=== PATIENT | male | born 1965 | race Caucasian/White ===

== ENCOUNTER → 2017-04-19 15:19 | Outpatient (CLI) | payer MEDICARE ==
[2013-03-11 13:32] VITALS: BMI 23.1
[~2017-04-19 15:19] MED LIST: CARAFATE1 G OR; CELEXA20 MG PO; FLAGYL500 MG PO; FLOMAX0.4 MG PO; NEURONTIN 100100 MG OR; PROTONIX40 MG PO; STELAZINE1 MG OR; VALIUM5 MG OR
== END | disposition home or self-care (01) ==
LOC: D.RAD 15:19
DX: K59.00 Constipation, unspecified (principal)

== ENCOUNTER 2017-05-30 12:59 | Emergency (ER) | payer MEDICARE ==
[2013-03-11 13:32] VITALS: BMI 23.1
[2017-05-30 13:49] LABS: BASOPHILS 0.3 % (0-2); EOSINOPHILS 1.8 % (0-7); HEMATOCRIT 39.9 % (42.0-54.0); HEMOGLOBIN 13.1 g/dL (13.5-17.5); IMMATURE GRANULOCYTES 0.6 % (0-5); LYMPHOCYTES 33.2 % (15-50); MCH 28.3 pg (26.0-34.0); MCHC 32.8 g/dL (31.0-37.0); MCV 86.2 fL (80.0-100.0); MEAN PLATELET VOLUME 8.4 fL (7.4-10.4); MONOCYTES 7.9 % (2-11); NEUTROPHILS 56.2 % (40-80); PLATELET COUNT 401 10x3/uL (130-400); RBC 4.63 10x6/uL (4.20-6.10); RDW 14.8 % (11.5-14.5); WBC 10.8 10x3/uL (4.8-10.8)
[2017-05-30 14:04] LABS: ALBUMIN 2.9 g/dL (3.4-5.0); ALKALINE PHOSPHATASE 79 U/L (46-116); ALT (SGPT) 14 U/L (10-68); BILIRUBIN - TOTAL 0.14 mg/dL (0.2-1.3); CALC OSMOLALITY 273 mosm/kg (275-300); CALCIUM 9.3 mg/dL (8.5-10.1); CARBON DIOXIDE 26.2 mmol/L (21.0-32.0); CHLORIDE - SERUM 102 mmol/L (98-107); CREATININE - SERUM 1.2 mg/dL (0.6-1.3); GLUCOSE 76 mg/dL (74-106); PROTEIN - SERUM 8.3 g/dL (6.4-8.2); SODIUM 137 mmol/L (136-145); UREA NITROGEN 15 mg/dL (7-18); eGFR NON AFRICAN AMERICAN 67 mL/min (90-120)
[2017-05-30 14:16] LABS: PRO BNP 66 pg/mL (0-125); TROPONIN-I < 0.017 ng/mL (0.000-0.060)
== END 2017-05-30 14:53 | disposition home or self-care (01) ==
LOC: D.ER 12:59
PROVIDERS: Emergency Medicine
DX: R06.00 Dyspnea, unspecified (principal); J44.1 Chronic obstructive pulmonary disease with (acute) exacerbation; F17.200 Nicotine dependence, unspecified, uncomplicated

== ENCOUNTER 2017-06-06 10:11 | Emergency (ER) | payer MEDICARE ==
[2013-03-11 13:32] VITALS: BMI 23.1
== END 2017-06-06 14:11 | disposition home or self-care (01) ==
LOC: D.ER 10:11
DX: K29.00 Acute gastritis without bleeding (principal); R11.10 Vomiting, unspecified; J44.9 Chronic obstructive pulmonary disease, unspecified; K21.9 Gastro-esophageal reflux disease without esophagitis; F17.200 Nicotine dependence, unspecified, uncomplicated

== ENCOUNTER 2017-06-07 12:01 | Inpatient (IN) | payer MEDICARE ==
[2017-06-07 12:41] LABS: BASOPHILS 0.2 % (0-2); EOSINOPHILS 0 % (0-7); HEMATOCRIT 39.8 % (42.0-54.0); HEMOGLOBIN 13.5 g/dL (13.5-17.5); IMMATURE GRANULOCYTES 0.4 % (0-5); LYMPHOCYTES 13.9 % (15-50); MCH 28.4 pg (26.0-34.0); MCHC 33.9 g/dL (31.0-37.0); MCV 83.6 fL (80.0-100.0); MEAN PLATELET VOLUME 8.4 fL (7.4-10.4); MONOCYTES 4.2 % (2-11); NEUTROPHILS 81.3 % (40-80); PLATELET COUNT 446 10x3/uL (130-400); RBC 4.76 10x6/uL (4.20-6.10); RDW 14.5 % (11.5-14.5); WBC 8.4 10x3/uL (4.8-10.8)
[2017-06-07 13:10] LABS: ALBUMIN 3.2 g/dL (3.4-5.0); ANION GAP 19.9 mmol/L (8-16); BILIRUBIN - TOTAL 0.39 mg/dL (0.2-1.3); CALCIUM 9.9 mg/dL (8.5-10.1); CARBON DIOXIDE 20.5 mmol/L (21.0-32.0); CREATININE - SERUM 1.1 mg/dL (0.6-1.3); POTASSIUM - SERUM 3.4 mmol/L (3.5-5.1); PROTEIN - SERUM 8.6 g/dL (6.4-8.2)
[2017-06-07 15:58] LABS: APPEARANCE HAZY (CLEAR); BACTERIA MODERATE /hpf (NONE SEEN); BILIRUBIN NEGATIVE (NEGATIVE); COLOR YELLOW (YELLOW); EPITHELIAL CELLS 0-5 /hpf (0-5); GLUCOSE NEGATIVE (NEGATIVE); KETONE SMALL mg/dL (NEGATIVE); MUCUS <1+ /lpf (NONE SEEN); NITRITE POSITIVE (NEGATIVE); PROTEIN NEGATIVE (NEGATIVE); RED CELLS - URINE 0-5 /hpf (0-5); SPECIFIC GRAVITY 1.005 (1.005-1.020); UROBILINOGEN NORMAL (NORMAL); WHITE CELLS - URINE 25-50 /hpf (0-5)
[2017-06-07 15:59] LABS: YEAST <1+ /hpf (NONE SEEN)
--- NOTE | 2017-06-07 18:02 | NUR ---
PT ADMITTED TO FLOOR WITH HOSPITAL STAFF. VSS B/P 112/69, PULSE 65 BPM, TEMP 99.2, RESPIRATIONS 16, PULSE OX 95% ROOM AIR. L UPPER ARM IV WITH NS AT 125ML/HR.
--- NOTE | 2017-06-07 19:00 | NUR ---
REPORT RECEIVED AND CARE OF PT ASSUMED. PT LYING IN SUPINE POSITION WATCHING TV. PT ARRIVED ON FLOOR AROUND 1800 FROM ER. WILL MONITOR RADHA FOR NEEDS.
--- NOTE | 2017-06-07 21:10 | NUR ---
HS MEDICATIONS GIVEN. WILL CONTINUE TO MONITOR FOR NEEDS.
--- NOTE | 2017-06-07 23:18 | NUR ---
CONNECTED UROSTOMY BAG TO MILLIGAN TUBING / BAG PER PT REQUEST SO HE CAN SLEEP WITHOUT HAVING TO EMPTY BAG DURING THE NIGHT.
[2017-06-07 23:24] VITALS: BP 160/91; BMI 17.0
[2017-06-08] VITALS: BP 90/56
[2017-06-08 04:00] VITALS: BP 105/69
[2017-06-08 06:14] LABS: BASOPHILS 0.4 % (0-2); EOSINOPHILS 0.7 % (0-7); HEMATOCRIT 36.7 % (42.0-54.0); HEMOGLOBIN 11.9 g/dL (13.5-17.5); IMMATURE GRANULOCYTES 0.3 % (0-5); LYMPHOCYTES 33.9 % (15-50); MCH 28.1 pg (26.0-34.0); MCHC 32.4 g/dL (31.0-37.0); MEAN PLATELET VOLUME 8.5 fL (7.4-10.4); MONOCYTES 7.3 % (2-11); NEUTROPHILS 57.4 % (40-80); PLATELET COUNT 395 10x3/uL (130-400); RBC 4.24 10x6/uL (4.20-6.10); RDW 14.9 % (11.5-14.5); WBC 9.1 10x3/uL (4.8-10.8)
[2017-06-08 06:19] LABS: MCV 86.6 fL (80.0-100.0)
[2017-06-08 06:45] LABS: ALBUMIN 2.5 g/dL (3.4-5.0); ALKALINE PHOSPHATASE 71 U/L (46-116); ALT (SGPT) 18 U/L (10-68); AMYLASE - SERUM 62 U/L (25-115); BILIRUBIN - DIRECT 0.07 mg/dL (0.00-0.30); BILIRUBIN - INDIRECT 0.13 mg/dL (0.00-1.00); CALCIUM 8.8 mg/dL (8.5-10.1); CHLORIDE - SERUM 106 mmol/L (98-107); LIPASE 120 U/L (73-393); POTASSIUM - SERUM 3.2 mmol/L (3.5-5.1); PROTEIN - SERUM 6.6 g/dL (6.4-8.2); SODIUM 141 mmol/L (136-145); eGFR NON AFRICAN AMERICAN 83 mL/min (90-120)
[2017-06-08 06:46] LABS: CALC OSMOLALITY 280 mosm/kg (275-300); CARBON DIOXIDE 27.2 mmol/L (21.0-32.0); GLUCOSE 97 mg/dL (74-106); UREA NITROGEN 12 mg/dL (7-18)
--- NOTE | 2017-06-08 07:42 | NUR ---
PT IS SITTING UP IN BED NO SIGNS OF DISTRESS, ASKED FOR BOTLED WATER,PT STATE THAT TAP WATER MAKES HIS STOMACH CRAMP HORRIBLY. ORDERED BOTTLED WATER TO BE BROUGHT WITH EACH TRAY FOR PT. BED IN LOW POSITION, CALL LIGHT IN REACH NO OTHER NEEDS AT THIS TIME
[2017-06-08 09:22] LABS: HELICOBACTER PYLORI IGG NEGATIVE (NEGATIVE)
[2017-06-08 09:38] VITALS: BP 97/63
--- NOTE | 2017-06-08 11:04 | NUR ---
PT C/O PAIN IN ABDOMEN, MORE LIKE CRAMPS, STOMACH IN KNOTS, GAVE PT ORDERED PRN MEDS. PT VERY NAUSEOUS, CONTINUE TO MONITOR
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
[2017-06-08 11:52] VITALS: BP 105/69
[2017-06-08 12:40] VITALS: BMI 17.0
[2017-06-08 16:41] VITALS: BP 91/58
--- NOTE | 2017-06-08 19:45 | NUR ---
PATIENT RESTING IN BED WITH 4/10 PAIN AND REQUESTED A DRINK. PATIENT DENIES OTHER NEEDS AT THIS TIME. BED IN LOWEST POSITION AND CALL LIGHT WITHIN REACH. ENCOURAGED THE PT TO CALL IF HE HAS NEEDS.
[2017-06-08 20:00] VITALS: BP 80/49
[2017-06-09] VITALS: BP 102/50; BP 90/49
[2017-06-09 07:44] LABS: CALC OSMOLALITY 277 mosm/kg (275-300); CALCIUM 8.5 mg/dL (8.5-10.1); CARBON DIOXIDE 25.8 mmol/L (21.0-32.0); CHLORIDE - SERUM 106 mmol/L (98-107); CREATININE - SERUM 0.8 mg/dL (0.6-1.3); GLUCOSE 87 mg/dL (74-106); POTASSIUM - SERUM 3.8 mmol/L (3.5-5.1); SODIUM 141 mmol/L (136-145); eGFR NON AFRICAN AMERICAN > 90 mL/min (90-120)
--- NOTE | 2017-06-09 07:45 | NUR ---
AM ROUNDS - PT IS IN ABD AND AWAKE AT THIS TIME. PT IS UP AD VISH. IV TO RIGHT UPPER ARM, NS AT 30 CC/HR. PT C/O ABD PAIN, 01/12. PT HAD DILAUDID AT 0545. RIGHT UROSTOMY, SELF CARE. BED AT LOWEST POSITION. CALL FOFANA IN USE/REACH. SIDE RAILS UP X2. NO FUTHER NEEDS AT THIS TIME. WILL CONTINUE TO MONITOR.
[2017-06-09 07:49] LABS: UREA NITROGEN 7 mg/dL (7-18)
[2017-06-09 09:02] VITALS: BP 96/54
--- NOTE | 2017-06-09 11:40 | NUR ---
PT IN BED AND APPREARS TO BE SLEEPING WITH EQUAL AND NON LABORED BREATHING. WILL CONTINUE TO MONITOR
[2017-06-09 12:19] VITALS: BP 100/61
[2017-06-09 16:42] VITALS: BP 112/61
--- NOTE | 2017-06-09 19:16 | NUR ---
PT RESTING IN BED WITH NO VISIBLE SIGNS OF DISTRESS. PATIENT REQUESTED PAIN MEDS WHEN DUE. DENIES OTHER NEEDS AT THIS TIME. BED IN LOWEST POSITION AND CALL LIGHT WITHIN REACH. ENCOURAGED THE PT TO CALL IF HE HAS NEEDS.
[2017-06-09 20:00] VITALS: BP 114/65
[2017-06-10] VITALS: BP 110/62
[2017-06-10 04:00] VITALS: BP 115/69
--- NOTE | 2017-06-10 07:54 | NUR ---
PT RESTING IN BED. ASSESSMENT COMPLETE. PT DENIES NEEDS AT THIS TIME. WCTM.
[2017-06-10 08:28] VITALS: BP 106/59
--- NOTE | 2017-06-10 09:41 | NUR ---
PT REQ AND REC'D PRN PAIN MEDICATION. WCTM.
[2017-06-10 13:18] VITALS: BP 107/72
--- NOTE | 2017-06-10 14:27 | NUR ---
"Patient Name: ISIS Mena KENYATTA Admission Status: ER Accout number: [id number] Admission Date: 06-07-2017 : 1965 Admission Diagnosis: Attending: CINTIA GASTELUM Current LOS: 3 Anticipated DC Date: 06-12-2017 Planned Disposition: Home Primary Insurance: MEDICARE A & B Discharge Planning Comments: CM MET WITH PATIENT REGARDING DISCHARGE NEEDS AND PLANS. PATIENT STATED HE LIVES ALONE AND HAS ABOUT 14 STEPS W/RAILS TO ENTER HOME. PATIENT STATED HE IS INDEPENDENT WITH HIS CARE AND HAS NO DME AT HOME. PATIENTS PCP IS AT [facility] AND HE USES [facility] ON [address] PATIENT STATED HE IS CURRENT WITH [facility]. CM WILL CONTINUE TO FOLLOW PATIENT WITH D/C NEEDS AND PLANS. PCP [facility] [address]- [phone] ERIN HUTSON (CONTACT/FRIEND) [phone] 4Th Grade Teacher: Maryam Pérez Is the patient Alert and Oriented? Yes 0 * How many steps to enter\\exit or inside your home? 14 W/RAILS 0 * PCP [facility] ([place]) 0 * Pharmacy [facility] ([address]) 0 * Preadmission Environment Home with Family 0 * ADLs Independent 0 * Equipment None 0 * List name and contact numbers for known caregivers / representatives who currently or will assist patient after discharge: ERIN HUTSON [phone] OR [phone] * Community resources currently utilized Home Health 0 * Please name any agencies selected above. [facility] 0 * Additional services required to return to the preadmission environment? Yes 0 * Can the patient safely return to the preadmission environment? Yes 0 * Has this patient been hospitalized within the prior 30 days at any hospital? No 0 Grand Total: 0"
--- NOTE | 2017-06-10 14:57 | NUR ---
NUTRITION F/U CHART REVIEWED. DIET ADVANCED TO REGULAR. 100% INTAKE RECENT MEALS. WILL CONTINUE TO PROVIDE DIET, MONITOR PO INTAKE. RD FOLLOWING
--- NOTE | 2017-06-10 16:16 | NUR ---
PT REQ AND REC'D PRN PAIN MEDICATION FOR PAIN LEVEL 9/10 ABD CRAMPING.
[2017-06-10 20:00] VITALS: BP 127/78
--- NOTE | 2017-06-10 21:41 | NUR ---
PAGED DR. LOMBARDI IN REGARDS TO PT'S DILAUDID
--- NOTE | 2017-06-10 22:25 | NUR ---
PT RESTING IN BED AT THIS TIME. ADMINISTERED MEDS PER ORDERS AND COMPLETED ASSESSMENT. PT DENIES OTHER NEEDS AT THIS TIME. BED IN LOWEST POSITION AND CALL LIGHT WITHIN REACH. ENCOURAGED THE PT TO CALL IF HE HAS NEEDS.
[2017-06-11 04:00] VITALS: BP 130/80
[2017-06-11 05:29] LABS: BASOPHILS 0.3 % (0-2); HEMATOCRIT 34.8 % (42.0-54.0); HEMOGLOBIN 11.7 g/dL (13.5-17.5); IMMATURE GRANULOCYTES 0.3 % (0-5); LYMPHOCYTES 31.2 % (15-50); MCH 28.2 pg (26.0-34.0); MCHC 33.6 g/dL (31.0-37.0); MCV 83.9 fL (80.0-100.0); MEAN PLATELET VOLUME 8.7 fL (7.4-10.4); MONOCYTES 7.3 % (2-11); NEUTROPHILS 57.9 % (40-80); PLATELET COUNT 331 10x3/uL (130-400); RBC 4.15 10x6/uL (4.20-6.10); RDW 14.2 % (11.5-14.5); WBC 7.3 10x3/uL (4.8-10.8)
[2017-06-11 05:36] LABS: CALCIUM 8.6 mg/dL (8.5-10.1); CARBON DIOXIDE 30.4 mmol/L (21.0-32.0); CHLORIDE - SERUM 105 mmol/L (98-107); CREATININE - SERUM 0.9 mg/dL (0.6-1.3); GLUCOSE 89 mg/dL (74-106); SODIUM 142 mmol/L (136-145); eGFR NON AFRICAN AMERICAN > 90 mL/min (90-120)
[2017-06-11 05:49] LABS: CALC OSMOLALITY 280 mosm/kg (275-300); POTASSIUM - SERUM 3.1 mmol/L (3.5-5.1); UREA NITROGEN 11 mg/dL (7-18)
--- NOTE | 2017-06-11 07:15 | NUR ---
PT IS RECEIVED THIS AM. HE IS SITTING UP ON SIDE OF BED. HE STATES THAT HE IS GOING HOME TODAY. HE STATES THAT HE IS FEELING BETTER THIS AM. GEN- AWAKE AND ALERT. LUNGS WITH WHEEZING. HEART- RRR. ABD- SOFT, NT BS+. UROSTOMY R SIDE OF LOWER ABD. EXT- NO EDEMA. IV NOTED R UPPER ARM WITH NS AT 30 CC. PATENT IV. BED IS LOW. SIDE RAILS UP X 2 AND CALL LIGHT IN REACH.
[2017-06-11] MEDS ORDERED: FLOMAX0.4 MG PO (07:43)
[2017-06-11] MEDS ORDERED: MACROBID100 MG PO (07:43)
[2017-06-11] MEDS ORDERED: GABAPENTIN100 MG PO (07:43)
[2017-06-11] MEDS ORDERED: K-TAB10 MEQ PO (07:44)
--- NOTE | 2017-06-11 09:00 | NUR ---
PT DISCHARGED HOME. DISCHARE INSTRUCTIONS GIVEN AND HANDOUTS GIVEN. ANSWERE PT QUESTIONS. HE IS WAITING ON HIS BLOOD DONOR RECRUITER TO PICK HIM UP.
--- NOTE | 2017-06-11 09:10 | NUR ---
CM REASSESSMENT NOTE: PATIENT IS DISCHARGING HOME TODAY/FRIEND IS DRIVING HIM. PATIENT IS CURRENT WITH [facility]. IMM SERVED
[2017-06-11 09:38] VITALS: BP 128/84
--- NOTE | 2017-06-11 10:00 | NUR ---
VENDOR QUALITY SUPERVISOR IS HERE TO PICK PT UP. IV D'CD R UPPER ARM. TIP INTACT. PT REFUSED WHEELCHAIR. HE WALKED WITH HIS VENDOR QUALITY SUPERVISOR.
== END 2017-06-11 10:00 | disposition home health service (06) | DRG 690 ==
LOC: D.ER 12:01 → D.MS 16:56
PROVIDERS: Emergency Medicine; ADMIT Family Medicine
DX: N10 Acute pyelonephritis (principal); E87.6 Hypokalemia; E86.0 Dehydration; K21.9 Gastro-esophageal reflux disease without esophagitis; F25.9 Schizoaffective disorder, unspecified

== ENCOUNTER → 2017-06-12 09:57 | Outpatient (CLI) | payer MEDICARE ==
[2017-06-08 12:40] VITALS: BMI 17.0
[~2017-06-12 09:57] MED LIST changes: +AMOXICILLIN500 M1 PO; +CYPROHEPTADINE H4 MG PO; +DEPAKOTE500 MG PO; +DIFLUCAN100 MG PO; +FLORAJEN3 CAPS460 MG PO; +GABAPENTIN100 MG PO; +K-TAB10 MEQ PO; +KLOR-CON 1010 MEQ PO; +MACROBID100 MG PO; +MIRALAX17 GM PO; +PROZAC40 MG PO; +STELAZINE1 MG PO; +TEGRETOL200 MG PO; +VALIUM10 MG PO; +VALIUM5 MG PO
--- NOTE | 2017-06-16 07:59 | EEG ---
PATIENT:ISIS YOU DATE OF SERVICE: 06/12/17 MEDICAL RECORD: [id number] DATE OF : 61 LOCATION: [facility] ADMISSION DATE: 06/12/17 REFERRING PHYSICIAN: INTERPRETING PHYSICIAN: BEKAH VANCE MD DATE OF SERVICE: 06/12/2017 REFERRING PHYSICIAN: Dr. Infante as an outpatient. ELECTROENCEPHALOGRAM NUMBER: [id number]. DATE OF EXAMINATION: 06/12/2017 at 10:30 a.m. DATE OF : 1965. TECHNICAL DATA: This electroencephalographic recording consists of approximately 20 minutes of data collection utilizing the international 10:20 system of electrode placement and both referential and non-referential montages. Sixteen channels of electrocerebral recording are accompanied by a 17th channel dedicated to the electrocardiographic rhythm and 2 channels of electromyographic recording. Recording is performed in the awake and sleep states utilizing activation by photic stimulation. ELECTROENCEPHALOGRAPHIC DATA: The awake state comprises approximately 30% of the recorded electrocerebral activity. Electromyographic artifact is prominent and rapid eye movements are seen. The posterior dominant background consists of a symmetric semi-arrhythmic waxing and waning 7-8 Hz alpha activity, which is suppressed by eye opening. The posterior dominant background tends more towards 7 Hz through most of the recording, but does reach 8 Hz at intervals. The drowsy state comprises approximately 40% of the recorded electrocerebral activity. Electromyographic artifact is diminished and rapid eye movements are not seen. The posterior dominant background is relatively suppressed when it is seen and tends more towards 7 Hz. The transition to stage II sleep, which comprises the remaining portion of the recorded electrocerebral activity is heralded by the appearance of typical 15 Hz sleep spindles. No abnormal or focal slowing is identified. No epileptiform discharges are seen. Photic stimulation induces no abnormal change in the recorded electrocerebral activity. INTERPRETATION: Normal (awake and asleep). This is a normal electroencephalographic recording. TRANSINT:[id number] Voice Confirmation ID: [id number] DOCUMENT ID: [id number] ELECTROENCEPHALOGRAM REPORT [id number] ISIS YOU BEKAH VANCE MD at 0759 CC: [id number] DICTATION DATE: 06/13/17823 [place] OPERATOR: 06/13/17 1223 DEP CLI 06/12/17 [address] [place] [address]
== END | disposition home or self-care (01) ==
LOC: D.CN 06-06 10:00
DX: G40.309 Generalized idiopathic epilepsy and epileptic syndromes, not intractable, without status epilepticus (principal)

== ENCOUNTER 2017-06-23 14:23 | Emergency (ER) | payer MEDICARE ==
[~2017-06-23 14:23] MED LIST changes: -AMOXICILLIN500 M1 PO; -CYPROHEPTADINE H4 MG PO; -DEPAKOTE500 MG PO; -DIFLUCAN100 MG PO; -FLORAJEN3 CAPS460 MG PO; -KLOR-CON 1010 MEQ PO; -MIRALAX17 GM PO; -PROZAC40 MG PO; -STELAZINE1 MG PO; -TEGRETOL200 MG PO; -VALIUM10 MG PO; -VALIUM5 MG PO
[2017-06-23 14:44] LABS: APPEARANCE CLOUDY (CLEAR); BILIRUBIN NEGATIVE (NEGATIVE); COLOR YELLOW (YELLOW); GLUCOSE NEGATIVE (NEGATIVE); KETONE NEGATIVE (NEGATIVE); NITRITE NEGATIVE (NEGATIVE); PROTEIN NEGATIVE (NEGATIVE); UROBILINOGEN NORMAL (NORMAL)
[2017-06-23 14:50] LABS: RED CELLS - URINE 0-5 /hpf (0-5)
[2017-06-23 14:51] LABS: AMORPHOUS SEDIMENT <1+ /lpf (NONE SEEN); BACTERIA MODERATE /hpf (NONE SEEN); EPITHELIAL CELLS OCC /hpf (0-5); HYALINE CAST 0-5 /lpf (NONE SEEN); MUCUS >1+ /lpf (NONE SEEN); WAXY CAST RARE /lpf (NONE SEEN); YEAST >1+ WITH HYPHAE /hpf (NONE SEEN)
[2017-06-23 15:24] LABS: BASOPHILS 0.3 % (0-2); EOSINOPHILS 0.1 % (0-7); HEMATOCRIT 40.7 % (42.0-54.0); HEMOGLOBIN 13.1 g/dL (13.5-17.5); IMMATURE GRANULOCYTES 0.3 % (0-5); LYMPHOCYTES 5.9 % (15-50); MCH 27.6 pg (26.0-34.0); MCHC 32.2 g/dL (31.0-37.0); MCV 85.9 fL (80.0-100.0); MEAN PLATELET VOLUME 8.6 fL (7.4-10.4); MONOCYTES 6.7 % (2-11); NEUTROPHILS 86.7 % (40-80); PLATELET COUNT 365 10x3/uL (130-400); RBC 4.74 10x6/uL (4.20-6.10); RDW 14.8 % (11.5-14.5); WBC 15.5 10x3/uL (4.8-10.8)
[2017-06-23 15:37] LABS: ALBUMIN 3.1 g/dL (3.4-5.0); ANION GAP 13.7 mmol/L (8-16); BILIRUBIN - TOTAL 0.36 mg/dL (0.2-1.3); CALCIUM 9.4 mg/dL (8.5-10.1); CARBON DIOXIDE 26.5 mmol/L (21.0-32.0); CREATININE - SERUM 1.6 mg/dL (0.6-1.3); POTASSIUM - SERUM 4.2 mmol/L (3.5-5.1); PROTEIN - SERUM 8.2 g/dL (6.4-8.2)
== END 2017-06-23 18:05 | disposition home or self-care (01) ==
LOC: D.ER 14:23
PROVIDERS: Family Medicine
DX: N39.0 Urinary tract infection, site not specified (principal); N10 Acute pyelonephritis; N28.9 Disorder of kidney and ureter, unspecified; K21.9 Gastro-esophageal reflux disease without esophagitis

== ENCOUNTER 2017-07-11 12:15 | Inpatient (IN) | payer MEDICARE ==
[~2017-07-11] VITALS: Ht 190.5 cm; Wt 71.5 kg
[2017-07-11] VITALS (10 sets, daily range): BP systolic 80–105; BP diastolic 47–70; BMI 21.2
[2017-07-11 13:07] LABS: APPEARANCE HAZY (CLEAR); BACTERIA MODERATE /hpf (NONE SEEN); BILIRUBIN NEGATIVE (NEGATIVE); COLOR YELLOW (YELLOW); EPITHELIAL CELLS OCC /hpf (0-5); GLUCOSE NEGATIVE (NEGATIVE); KETONE NEGATIVE (NEGATIVE); NITRITE NEGATIVE (NEGATIVE); PROTEIN TRACE mg/dL (NEGATIVE); RED CELLS - URINE 0-5 /hpf (0-5); UROBILINOGEN NORMAL (NORMAL)
[2017-07-11 13:11] LABS: UDS - AMPHET POSITIVE QUAL (NEGATIVE); UDS - BARB NEGATIVE QUAL (NEGATIVE); UDS - BENZO POSITIVE QUAL (NEGATIVE); UDS - COCAINE NEGATIVE QUAL (NEGATIVE); UDS - OPIATE NEGATIVE QUAL (NEGATIVE); UDS - PCP NEGATIVE QUAL (NEGATIVE); UDS - THC POSITIVE QUAL (NEGATIVE)
[2017-07-11 13:13] LABS: BASOPHILS 0.1 % (0-2); EOSINOPHILS 0.1 % (0-7); HEMATOCRIT 39.9 % (42.0-54.0); HEMOGLOBIN 13.4 g/dL (13.5-17.5); IMMATURE GRANULOCYTES 0.5 % (0-5); LYMPHOCYTES 11.3 % (15-50); MCH 27.5 pg (26.0-34.0); MCHC 33.6 g/dL (31.0-37.0); MCV 81.9 fL (80.0-100.0); MEAN PLATELET VOLUME 8.2 fL (7.4-10.4); MONOCYTES 8.8 % (2-11); NEUTROPHILS 79.2 % (40-80); PLATELET COUNT 316 10x3/uL (130-400); RBC 4.87 10x6/uL (4.20-6.10); RDW 14.6 % (11.5-14.5); WBC 14.8 10x3/uL (4.8-10.8)
[2017-07-11 13:26] LABS: ALBUMIN 2.9 g/dL (3.4-5.0); ALKALINE PHOSPHATASE 106 U/L (46-116); ALT (SGPT) 10 U/L (10-68); BILIRUBIN - TOTAL 0.48 mg/dL (0.2-1.3); CALC OSMOLALITY 267 mosm/kg (275-300); CALCIUM 8.9 mg/dL (8.5-10.1); CARBON DIOXIDE 24.8 mmol/L (21.0-32.0); CHLORIDE - SERUM 93 mmol/L (98-107); CREATININE - SERUM 1.8 mg/dL (0.6-1.3); GLUCOSE 137 mg/dL (74-106); POTASSIUM - SERUM 3.7 mmol/L (3.5-5.1); PROTEIN - SERUM 8.4 g/dL (6.4-8.2); SODIUM 132 mmol/L (136-145); UREA NITROGEN 15 mg/dL (7-18); eGFR NON AFRICAN AMERICAN 42 mL/min (90-120)
[2017-07-11 13:29] LABS: MAGNESIUM - SERUM 1.2 mg/dL (1.8-2.4)
[2017-07-11 13:34] LABS: TROPONIN-I < 0.017 ng/mL (0.000-0.060)
[2017-07-11] MEDS ORDERED: KLOR-CON 1010 MEQ PO (18:41)
[2017-07-11] MEDS ORDERED: VALIUM5 MG PO (18:43)
[2017-07-11] MEDS ORDERED: PROTONIX40 MG PO (18:43)
[2017-07-11] MEDS ORDERED: VALIUM10 MG PO (18:44)
[2017-07-11] MEDS ORDERED: STELAZINE1 MG PO (18:44)
[2017-07-11] MEDS ORDERED: CYPROHEPTADINE H4 MG PO (18:45)
[2017-07-11] MEDS ORDERED: PROZAC40 MG PO (18:46)
[2017-07-11] MEDS ORDERED: TEGRETOL200 MG PO (18:46)
[2017-07-11] MEDS ORDERED: DEPAKOTE500 MG PO (18:47)
--- NOTE | 2017-07-11 18:55 | NUR ---
PT ARRIVED TO UNIT ALERT AND ORIENTED. QUICK START COMPLETED AND MED REC DONE. PT STATES HE HASNT TAKEN HIS MEDS THE LAST COUPLE DAYS BECAUSE HE HASNT FELT GOOD. PT ALSO STATES HE HAS BEEN BLACKING OUT LATELY BUT UNSURE WHY. BP VERY HYPOTENSIVE AT 80/50 IN R.ARM. CHECKED IN LEFT AND ITS WORSE AT 74/50 MANUALLY CHECKED AND HIGHEST WAS 72/40. PAGED DOCTOR IMMEDIATELY. PT ASYMPTOMATIC AND HAS FLUID @150ML/HR INFUSING. WILL CTM CLOSELY.
--- NOTE | 2017-07-11 19:09 | NUR ---
PRIMARY WANTS CARDIAC CONSULTED FOR HYPOTENSION AND ECHO ORDERED. PAGED REJI AND HE WANTS PT TRANSFERRED TO ICU STAT WITH A DOPAMINE DRIP STARTING @5 AND TO TITRATE SBP>85. CALLED CASING PULLER AND WILL GIVE ICU REPORT WHEN WE HAVE A BED.
--- NOTE | 2017-07-11 19:25 | NUR ---
PLACED PT IN [place] AND RECHECKED BP. BP NOW 70/41 VIA L.ARM WILL CALL REPORT TO ICU NURSE AND PT WILL TRANSFER TO 2307.
--- NOTE | 2017-07-11 19:54 | NUR ---
REPORT GIVEN TO DELILAH IN ICU. PROCESS AND SITUATION EXPLAINED TO PT. PT VERBALIZED UNDERSTANDING, LAST BP NOW 79/48. WILL NOW TRANSFER PT.
--- NOTE | 2017-07-11 20:13 | NUR ---
REC'D TO ROOM 2307, PT TRANSFERRED SELF. ALERT AND ORIENTED. B/P 87/57 (MAP 64). ORDERS FOR DOPAMINE GTT IF SBP < 85. ICU MONITORS ESTAB,, ALARMS ON. CM - SB. RLQ UROSTOMY NOTED WITH YELLOW URINE, SEDIMENT NOTED. PIV R AC WITH NS/MAG SULFATE AT 150ML/HR, NO REDNESS OR SWELLING AT SITE. SEE DEATH CLAIM EXAMINER BY PREV NURSE. C/L IN REACH.
--- NOTE | 2017-07-11 20:54 | NUR ---
Luana REDDY NOTIFIED OF PT C/O PAIN IN FLANK AREA. NEW ORDER REC'D.
--- NOTE | 2017-07-11 21:32 | NUR ---
ADMIN PRN TYLENOL. DENIES OTHER NEEDS.
--- NOTE | 2017-07-11 22:57 | NUR ---
REASSESSMENT PER FLOWSHEET, NO ACUTE CHANGES. TEMP 99.6. PT A LITTLE ANXIOUS. "JUST DONT KNOW WHAT'S WRONG." PT CALMED FOR NOW WHEN TALKED TO . WILL CONT CLOSE MONITORING.
--- NOTE | 2017-07-11 23:45 | NUR ---
INITIATE DOPAMINE GTT PER MD ORDERS - WILL TITRATE FOR EFFECT. PT UP IN BED, GIVEN JELLO AND APPLESAUCE PER REQUEST.
[2017-07-12] VITALS (51 sets, daily range): BP systolic 76–111; BP diastolic 46–75; Ht 190.5 cm; Wt 71.5 kg
--- NOTE | 2017-07-12 02:00 | NUR ---
PT UP TO BSC, SMALL BM. MAHIN-CARE PER PT. BACK TO BED.
--- NOTE | 2017-07-12 03:11 | NUR ---
REASSESSMENT PER FLOWSHEET, NO ACUTE CHANGES. TEMP 100.8 - PRN TYLENOL GIVEN. PT RESTING ON L SIDE. SBP 80S - TITRATING DOPAMINE PER MD ORDERS. PT DENIES OTHER NEEDS. C/L IN REACH. ALARMS ON.
[2017-07-12 04:03] LABS: BASOPHILS 0.1 % (0-2); EOSINOPHILS 0 % (0-7); HEMATOCRIT 32.7 % (42.0-54.0); HEMOGLOBIN 10.8 g/dL (13.5-17.5); IMMATURE GRANULOCYTES 0.4 % (0-5); LYMPHOCYTES 9.6 % (15-50); MCH 26.8 pg (26.0-34.0); MCV 81.1 fL (80.0-100.0); MEAN PLATELET VOLUME 8.4 fL (7.4-10.4); MONOCYTES 8.1 % (2-11); NEUTROPHILS 81.8 % (40-80); PLATELET COUNT 261 10x3/uL (130-400); RBC 4.03 10x6/uL (4.20-6.10); RDW 14.6 % (11.5-14.5)
[2017-07-12 04:15] LABS: ANION GAP 12.2 mmol/L (8-16); CALCIUM 7.8 mg/dL (8.5-10.1); CARBON DIOXIDE 26.1 mmol/L (21.0-32.0); CREATININE - SERUM 1.4 mg/dL (0.6-1.3); MAGNESIUM - SERUM 2.1 mg/dL (1.8-2.4); PHOSPHOROUS 2.5 mg/dL (2.5-4.9); POTASSIUM - SERUM 3.3 mmol/L (3.5-5.1)
--- NOTE | 2017-07-12 10:50 | NUR ---
DOPAMINE TITRATED DOWN.
--- NOTE | 2017-07-12 14:13 | NUR ---
MEDS GIVEN WHEN AVAILABLE FROM PHARMACY.
--- NOTE | 2017-07-12 17:10 | NUR ---
DR. BARLOW NOTIFIED DR. DURÁN OF CONSULT. DR. DURÁN AT BEDSIDE.
--- NOTE | 2017-07-12 18:20 | NUR ---
TO CT VIA WHEELCHAIR.
--- NOTE | 2017-07-12 18:55 | NUR ---
RETURNED FROM CT. CONNECTED TO ALL BEDSIDE MONITORS. DENIES NEEDS. REQUESTS PAIN MEDICATION. RUPERTO SMITH TO CHECK TIME OF LAST ADMINISTRATION.
--- NOTE | 2017-07-12 19:15 | NUR ---
REPORT RECEIVED, SHIFT ASSESSMENT COMPLETE. SEE FLOWSHEET FOR DETAILS. VSS, REQUESTS PAIN MEDINCINE, BUPRINEX GIVEN. WILL MONITOR.
--- NOTE | 2017-07-12 21:05 | NUR ---
NIGHT MEDS GIVEN WITHOUT DIFFICULTY.
--- NOTE | 2017-07-12 23:15 | NUR ---
REASSESSMENT COMPLETE, NO ACUTE CHANGES. UROSTOMY EMPTIED BY HIMSELF, EMPTIED 650CC OF BIANCA URINE.
[2017-07-13] VITALS (13 sets, daily range): BP systolic 83–143; BP diastolic 34–72
--- NOTE | 2017-07-13 01:00 | NUR ---
FAN GIVEN PER REQUESTS TO HELP SLEEP. DENIES FURTHER NEED.
--- NOTE | 2017-07-13 03:15 | NUR ---
REASSESSMENT COMPLETE, NO ACUTE CHANGES.
[2017-07-13 05:19] LABS: BASOPHILS 0.2 % (0-2); EOSINOPHILS 0.6 % (0-7); HEMATOCRIT 27.8 % (42.0-54.0); HEMOGLOBIN 9.4 g/dL (13.5-17.5); IMMATURE GRANULOCYTES 0.5 % (0-5); LYMPHOCYTES 25.4 % (15-50); MCH 27.3 pg (26.0-34.0); MCHC 33.8 g/dL (31.0-37.0); MCV 80.8 fL (80.0-100.0); MEAN PLATELET VOLUME 8.2 fL (7.4-10.4); MONOCYTES 12.6 % (2-11); NEUTROPHILS 60.7 % (40-80); PLATELET COUNT 217 10x3/uL (130-400); RBC 3.44 10x6/uL (4.20-6.10); RDW 14.6 % (11.5-14.5); WBC 6.2 10x3/uL (4.8-10.8)
--- NOTE | 2017-07-13 05:30 | NUR ---
LABS REVIEWED, ELECTROLYTE PROTOCOL FOLLOWED.
[2017-07-13 05:38] LABS: ANION GAP 10.6 mmol/L (8-16); BILIRUBIN - TOTAL 0.2 mg/dL (0.2-1.3); CALCIUM 7.7 mg/dL (8.5-10.1); CARBON DIOXIDE 24.8 mmol/L (21.0-32.0); CREATININE - SERUM 1.1 mg/dL (0.6-1.3); POTASSIUM - SERUM 3.4 mmol/L (3.5-5.1); VANCOMYCIN - TROUGH 10.6 ug/mL (10.0-20.0)
[2017-07-13 05:39] LABS: ALBUMIN 1.8 g/dL (3.4-5.0); PROTEIN - SERUM 5.5 g/dL (6.4-8.2)
--- NOTE | 2017-07-13 10:15 | NUR ---
IV OUT CATH FULLY INTACT.
--- NOTE | 2017-07-13 12:30 | NUR ---
RIGHT 20 PIV TIMES 1 STICK.
--- NOTE | 2017-07-13 12:45 | NUR ---
REPORT CALLED TO DAVID SMITH.
--- NOTE | 2017-07-13 12:55 | NUR ---
RECEIVED REPORT FROM MARISOL SMITH FROM ICU.
--- NOTE | 2017-07-13 13:39 | NUR ---
RECEIVED PT TO ROOM 2110 VIA WHEELCHAIR, PT A/O X4. ORIENTED PT TO ROOM AND CALL LIGHT. VANC IVPB INFUSING TO RT FA. PT DENIES ANY NEEDS AT THIS TIME, CALL LIGHT IN REACH, NAD NOTED, WILL CONTINUE PLAN OF CARE.
--- NOTE | 2017-07-13 13:40 | NUR ---
TRANSFERRED TO ROOM 2110 VIA WHEELCHAIR. MET IN ROOM BY DAVID SMITH. ALL PERSONAL BELONGINGS PER PT.
--- NOTE | 2017-07-13 16:52 | NUR ---
ADMINISTERED VALIUM ORDERED. PT IN BED, EATING DINNER, DENIES ANY NEEDS AT THIS TIME, CALL LIGHT IN REACH, NAD NOTED.
--- NOTE | 2017-07-13 17:15 | NUR ---
PT NOTIFIED THIS NURSE OF UROSTOMY BAG LEAKING. 1718- [employer] NOTIFIED THAT I NEED UROSTOMY BAG FOR PT.
--- NOTE | 2017-07-13 19:51 | NUR ---
RESUMED CARE OF PT, LYING IN BED WITH EYES CLOSED RESPIRATIONS EVEN AND UNLABORED ON ROOM AIR. RIGHT FOREARM INFUSING NS @ 150. 79 SR ON TELEMETRY. CALL LIGHT IN REACH. WILL CONTINUE TO MONITOR. SEE NURSE ASSESSMENT.
--- NOTE | 2017-07-13 23:47 | NUR ---
UROSTOMY CHANGED DUE TO LEAKING. LINENS AND GOWN CHANGED. STOMA IS A NICE BEEFY RED, NO SKIN IRRITATION NOTED. CALL LIGHT IN REACH.
[2017-07-14] VITALS: BP 92/53
[2017-07-14 04:00] VITALS: BP 91/59
[2017-07-14 06:20] LABS: BASOPHILS 0.2 % (0-2); EOSINOPHILS 1.6 % (0-7); HEMATOCRIT 27.8 % (42.0-54.0); HEMOGLOBIN 9.4 g/dL (13.5-17.5); IMMATURE GRANULOCYTES 0.5 % (0-5); LYMPHOCYTES 29.1 % (15-50); MCH 27.4 pg (26.0-34.0); MCHC 33.8 g/dL (31.0-37.0); MEAN PLATELET VOLUME 8.3 fL (7.4-10.4); MONOCYTES 12.3 % (2-11); NEUTROPHILS 56.3 % (40-80); PLATELET COUNT 227 10x3/uL (130-400); RBC 3.43 10x6/uL (4.20-6.10); RDW 14.9 % (11.5-14.5); WBC 5.8 10x3/uL (4.8-10.8)
--- NOTE | 2017-07-14 06:22 | NUR ---
2ND UROSTOMY CHANGED DUE TO LEAKING. NO CHANGES FROM PREVIOUS ASSESSMENT, CALL LIGHT IN REACH.
[2017-07-14 06:37] LABS: ALBUMIN 1.8 g/dL (3.4-5.0); ANION GAP 10.8 mmol/L (8-16); BILIRUBIN - TOTAL 0.3 mg/dL (0.2-1.3); CALCIUM 8.3 mg/dL (8.5-10.1); CARBON DIOXIDE 27.1 mmol/L (21.0-32.0); CREATININE - SERUM 1.1 mg/dL (0.6-1.3); POTASSIUM - SERUM 3.9 mmol/L (3.5-5.1); PROTEIN - SERUM 5.7 g/dL (6.4-8.2)
--- NOTE | 2017-07-14 07:17 | NUR ---
PT IN BED, WITH EYES CLOSED, AROUSES EASILY TO VOICE. RESP EVEN AND UNLABORED, RT FA IV INFUSING NS AT 150. PT DENIES ANY NEEDS AT THIS TIME. CALL LIGHT IN REACH, NAD NOTED, WILL CONTINUE PLAN OF CARE.
[2017-07-14 08:05] VITALS: BP 98/63
--- NOTE | 2017-07-14 08:27 | NUR ---
AM MEDS GIVEN AT THIS TIME, PT REFUSED NICOTINE PATCH. IN BED EATING BREAKFAST. DENIES ANY NEEDS AT THIS TIME. CALL LIGHT IN REACH, NAD NOTED, WILL CONTINUE PLAN OF CARE.
[2017-07-14 11:34] VITALS: BP 100/60
--- NOTE | 2017-07-14 15:53 | NUR ---
IV TUBING CHANGED AT THIS TIME. HELPED PT TO EMPTY UROSTOMY BAG, TOTAL OUTPUT AT WAS 500. PT DENIES ANY NEEDS AT THIS TIME. CALL LIGHT IN REACH, NAD NOTED.
[2017-07-14 15:56] VITALS: BP 98/54
--- NOTE | 2017-07-14 16:56 | NUR ---
VALIUM GIVEN ORDERED, HUNG IVPB LEVAQUIN. PT IN BED, EATING DINNER, DENIES ANY NEEDS AT THIS TIME. CALL LIGHT IN REACH,NAD NOTED.
--- NOTE | 2017-07-14 19:44 | NUR ---
RESUMED CARE OF PT, LYING IN BED RESPIRATIONS EVEN AND UNLABORED ON ROOM AIR. RIGHT FOREARM INFUSING NS @ 150. UROSTOMY C/D/I AND EMPTYING CLEAR YELLOW URINE. 75 SR ON TELEMETRY. CALL LIGHT IN REACH. WILL CONTINUE TO MONITOR. SEE NURSE ASSESSMENT
[2017-07-14 20:23] VITALS: BP 103/64
--- NOTE | 2017-07-14 23:41 | NUR ---
LYING IN BED WITH EYES CLOSED, CALL LIGHT IN REACH. WILL CONTINUE TO MONITOR.
[2017-07-15 01:21] VITALS: BP 92/54
[2017-07-15 04:48] VITALS: BP 90/49
[2017-07-15 06:07] LABS: BASOPHILS 0.2 % (0-2); EOSINOPHILS 2.8 % (0-7); HEMATOCRIT 27.3 % (42.0-54.0); HEMOGLOBIN 9.1 g/dL (13.5-17.5); IMMATURE GRANULOCYTES 0.6 % (0-5); LYMPHOCYTES 34.4 % (15-50); MCHC 33.3 g/dL (31.0-37.0); MEAN PLATELET VOLUME 8.4 fL (7.4-10.4); MONOCYTES 11.1 % (2-11); NEUTROPHILS 50.9 % (40-80); PLATELET COUNT 248 10x3/uL (130-400); RBC 3.37 10x6/uL (4.20-6.10); RDW 14.9 % (11.5-14.5); WBC 6.4 10x3/uL (4.8-10.8)
--- NOTE | 2017-07-15 06:29 | NUR ---
NO CHANGES FROM PREVIOUS ASSESSMENT, CALL LIGHT IN REACH.
[2017-07-15 06:41] LABS: ALBUMIN 1.9 g/dL (3.4-5.0); ALKALINE PHOSPHATASE 72 U/L (46-116); ALT (SGPT) 9 U/L (10-68); BILIRUBIN - TOTAL 0.12 mg/dL (0.2-1.3); CALC OSMOLALITY 283 mosm/kg (275-300); CALCIUM 8.2 mg/dL (8.5-10.1); CARBON DIOXIDE 29.7 mmol/L (21.0-32.0); CHLORIDE - SERUM 104 mmol/L (98-107); GLUCOSE 95 mg/dL (74-106); POTASSIUM - SERUM 3.8 mmol/L (3.5-5.1); PROTEIN - SERUM 5.9 g/dL (6.4-8.2); SODIUM 142 mmol/L (136-145); eGFR NON AFRICAN AMERICAN 83 mL/min (90-120)
[2017-07-15 06:44] LABS: UREA NITROGEN 14 mg/dL (7-18)
--- NOTE | 2017-07-15 07:15 | NUR ---
RESTING QUIETLY NAD NOTED
[2017-07-15 08:00] VITALS: BP 91/61
--- NOTE | 2017-07-15 11:02 | NUR ---
ASSESSMENT COMPLETED.PT IS ALERT AND ORIENTED. TELEMERTY SHOWS SR. RIGHT FA IV WITH NS AT 150. PT HAS A UROSTOMY.UP AB VISH. WILL MONITOR. SIDE RAIL UP WITH CALL LIGHT IN REACH
[2017-07-15 12:00] VITALS: BP 91/56
--- NOTE | 2017-07-15 12:53 | NUR ---
WALKING IN HALLWAY. DENIES ANY NEEDS. WILL MONITOR
[2017-07-15 16:00] VITALS: BP 103/64
[2017-07-15] MEDS ORDERED: AMOXICILLIN500 M1 PO (16:00)
[2017-07-15] MEDS ORDERED: FLORAJEN3 CAPS460 MG PO (16:02)
--- NOTE | 2017-07-15 16:56 | NUR ---
Patient Name: ISIS Mena KENYATTA Admission Status: ER Accout number: [id number] Admission Date: 07-11-2017 : 1965 Admission Diagnosis: Attending: CHARBEL PAUL Current LOS: 4 Anticipated DC Date: 07-15-2017 Planned Disposition: Home with Home Health Primary Insurance: MEDICARE A & B PLANNED EXTERNAL PROVIDER: [facility] Discharge Planning Comments: * Is the patient Alert and Oriented? Yes 0 * How many steps to enter\exit or inside your home? 14 0 * PCP [facility] 0 * [facility] 0 * Preadmission Environment Home Alone 0 * ADLs Independent 0 * Equipment None 0 * Other Equipment NO MEDICAL EQUIPMENT PROVIDER PREFERENCE 0 * List name and contact numbers for known caregivers / representatives who currently or will assist patient after discharge: ESTEPHANIE AGUIRRE, TINY, 0 * Community resources currently utilized Home Health 0 * Please name any agencies selected above. [facility] 0 * Additional services required to return to the preadmission environment? No 0 * Can the patient safely return to the preadmission environment? Yes 0 * Has this patient been hospitalized within the prior 30 days at any hospital? No 0 CM MET WITH PT IN ROOM TO DISCUSS DISCHARGE PLANNING AND NEEDS. PT REPORTS LIVING AT HOME INDEPENDENTLY AND ALONE. PT HAS NO MEDICAL EQUIPMENT AND HOME HEALTH WITH [facility]. PT ALSO HAS HOUSEKEEPING AND COOKING ASSISTANCE THROUGH MEDICAID. PT UNSURE OF HOW MANY HOURS AND THINKS THEY COME FROM HOME HEALTH. CM DISCUSSED AVAILABILITY OF REHAB SERVICES AND MEDICAL EQUIPMENT. PT DENIES DISCHARGE NEEDS, REPORTS A FRIEND WILL PICK HIM UP FOR DISCHARGE HOME TODAY. IMPORTANT MESSAGE FROM MEDICARE PROVIDED AND EXPLAINED. CM CALLED [facility], SPOKE TO SRINATH AT [phone], VERIFIED PT ACTIVE AND HOLDING FOR HOSPITAL STAY; HOME HEALTH SERVICES TO RESUME 07-16. CM FAXED DISCHARGE INFORMATION TO [facility] AT [phone]. UTILITY ENGINEER NURSE NOTIFIED. Yarn Man: Hermelindo Guidry
--- NOTE | 2017-07-16 12:15 | EC ---
PATIENT:ISIS YOU DATE OF SERVICE: 07/11/17 SEX: M MEDICAL RECORD: [id number] DATE OF : 61 LOCATION:D. D.211 AGE OF PATIENT: 51 ADMISSION DATE: 07/11/17 REFERRING PHYSICIAN: INTERPRETING PHYSICIAN: NISHI DEVRIES MD ECHOCARDIOGRAM REPORT ECHO CHARGES 4 ECHO COMPLETE CLINICAL DIAGNOSIS: SEPSIS/HYPPOTENSION ECHOCARDIOGRAPHIC MEASUREMENTS (adult normal given) AC root (d.<3.7cm) 3.4 cm LV Septum d (<1.2 cm> 1.9 cm Valve Excursion 1.8 cm LV Septum (systole) 2.0 cm Left Atria (s.<4.0cm> 3.2 cm LVPW d(<1.2cm) 1.3 cm RV (d.<2.3cm) 4.5 cm LVPW (sytole) 1.5 cm LV diastole(<5.6CM) 4.8 cm MV E-F(>70mm/sec) cm LV systole 3.0 cm LVOT Diameter 2.2 cm MV exc.(>10mm) cm Est.ejection fraction (50-75%) % Pericardial Effusion N DOPPLER: LVIT cm/sec A 77.0 cm/sec E 88.0 cm/sec LA cm/sec RVSP 21 mmHg LVOT 78 cm/sec AOP1/2T m/s Asc. Ao 153 cm/sec RVOT cm/sec RA cm/sec PA cm/sec AV Gradient Peak 9.41 mmHg AV Mean 4.53 mmHg AV Area 1.7 cm MV Gradient Peak 3.75 mmHg MV Mean 1.43 mmHg MV Area cm COMMENTS: Welder Gas Automatic: Cliff WOOD Panel Lay Up Worker: 1 Dr. Devries TAPE# PACS DATE OF SERVICE: 07/12/2017 ECHOCARDIOGRAM DATE OF SERVICE: 07/12/2017 FINDINGS: 1. Left ventricular chamber size is within normal limits. Left ventricular systolic function is normal. Overall ejection fraction estimated at 60%. 2. Left atrium is within normal limits at 3.2 cm. Right atrium and right ECHOCARDIOGRAM REPORT [id number] ISIS YOU ventricle chamber sizes are mildly dilated. 3. Valvular structures have normal structure and motion. No evidence of vegetative endocarditis. 4. Doppler interrogation reveals trace to mild tricuspid regurgitation only. No other valvular insufficiency or stenosis. Pulmonary systolic pressure is normal estimated at 21 mmHg. 5. No evidence of pericardial effusion or left ventricular thrombus. TRANSINT:[id number] Voice Confirmation ID: [id number] DOCUMENT ID: [id number] NISHI DEVRIES MD at 1215 CC: [id number] DICTATION DATE: 07/12/17 1421 MUSICAL INSTRUMENT MAKER: 07/12/17 1459 DIS IN 07/15/17 [place] [id number] [place] [id number]
--- NOTE | 2017-07-16 12:15 | CN ---
PATIENT NAME:ISIS YOU MEDICAL RECORD: [id number] : 61 LOCATION:[facility] D.2111 ADMIT DATE: 07/11/17 ACCOUNT: [id number] CONSULTING PHYSICIAN: NISHI MENDOZA MD REFERRING PHYSICIAN: CHARBEL PAUL MD DATE OF CONSULTATION: 07/12/2017 CARDIOLOGY CONSULTATION DIAGNOSIS: Hypotension. HISTORY OF PRESENT ILLNESS: This is a gentleman who has no history of ischemic heart disease, who has a normal echo in the past, who now presents with hypotension, possible sepsis. He has not had any dysrhythmias. He is somewhat tachycardic, but his systolic blood pressure is in the 80s on pressors. PHYSICAL EXAMINATION: GENERAL APPEARANCE: Well-nourished, well-developed, appears stated age. Level of distress, comfortable. PSYCHIATRIC: Mental status, alert, normal affect. Orientation, oriented to time, place and person. EYES: Lids and conjunctiva, noninjected. No discharge, no pallor. ENT: Lips, teeth, gums, normal dentition. Oropharynx, no cyanosis, no pallor. NECK: Carotid arteries, bilateral normal upstroke, no bruits, no thrills. JUGULAR VEINS: No jugular venous pressure or distention. CERVICAL LYMPH NODES: Nontender, nonenlarged. THYROID: Not enlarged. Nontender. No nodules. LUNGS: Respiratory effort, unlabored. CHEST: Normal curvature. No thoracic deformity. No chest wall tenderness. Percussion, resonant. Auscultation, clear. No wheezes, no rales, no rhonchi. CARDIOVASCULAR: Precordial exam, nondisplaced. No heaves or pericardial thrills. Rate and rhythm, regular. Heart sounds, normal S1, normal S2. No S3, no gallop, no rub. Systolic murmur, not heard. Diastolic murmur, not heard. EXTREMITIES: No cyanosis, no edema. Peripheral pulses, full and equal in all extremities, except as noted. No bruits appreciated. ABDOMEN: Soft, nondistended. Normal aorta. No bruit. Nontender. No masses. Liver, nontender, no hepatomegaly. Spleen, nontender, no splenomegaly. MUSCULOSKELETAL: No joint tenderness. No joint swelling. No erythema. NEUROLOGICAL: Normal gait, normal strength, normal tone. SKIN: Warm and dry. OVERALL IMPRESSION: Most likely, this is noncardiac in etiology. Previously, his echo had a normal ejection fraction. We will repeat an echocardiogram today. If the echo is still normal, this is noncardiac and no other cardiac workup or treatment is necessary. TRANSINT:[id number] Voice Confirmation ID: [id number] DOCUMENT ID: [id number] CONSULT REPORT [id number] ISIS YOU JEFFREY MD at 1215 CC: [id number] DICTATION DATE: 07/12/17 1014 HEAVY EQUIPMENT RENTAL MANAGER: 07/12/17 1111 DIS IN 07/15/17 [place] [id number] [place] [address]
== END 2017-07-15 15:55 | disposition home health service (06) | DRG 871 ==
LOC: D.ER 12:15 → D.M2 16:30 → D.ICU 16:30 → D.M2 07-13 13:32
PROVIDERS: Family Medicine; Nurse Practitioner Family; Student in an Organized Health Care Education/Training Program; ADMIT Family Medicine
DX: A41.9 Sepsis, unspecified organism (principal); R65.21 Severe sepsis with septic shock; F17.203 Nicotine dependence unspecified, with withdrawal; E87.1 Hypo-osmolality and hyponatremia; N10 Acute pyelonephritis; N17.9 Acute kidney failure, unspecified; N13.30 Unspecified hydronephrosis; E86.0 Dehydration; F25.9 Schizoaffective disorder, unspecified; K21.9 Gastro-esophageal reflux disease without esophagitis; F15.10 Other stimulant abuse, uncomplicated; F12.10 Cannabis abuse, uncomplicated; E83.42 Hypomagnesemia; J44.9 Chronic obstructive pulmonary disease, unspecified; B95.2 Enterococcus as the cause of diseases classified elsewhere; N20.0 Calculus of kidney; Z93.6 Other artificial openings of urinary tract status; Z85.51 Personal history of malignant neoplasm of bladder

== ENCOUNTER 2017-07-31 08:36 | Day surgery (SDC) | payer MEDICARE ==
[~2017-07-31] VITALS: Ht 190.5 cm; Wt 71.2 kg
--- NOTE | ~2017-07-31 | OP ---
PATIENT NAME: ISIS YOU MEDICAL RECORD: [id number] :61 LOCATION:D.[facility] ADMISSION DATE: SURGEON: ARLENE CORMIER MD DATE OF OPERATION: 07/31/2017 PRINCIPAL DIAGNOSIS: Tubular adenoma within the appendiceal orifice. POSTOPERATIVE DIAGNOSES: Tubular adenoma within the appendiceal orifice with inability to remove the entire polypoid mass within the appendiceal orifice as it traveled down into the lumen of the appendix. PROCEDURES: 1. Total colonoscopy to the cecum. 2. Snare polypectomy of the tubular adenoma of the appendiceal orifice. 3. Endoscopic tattooing of the residual polyp at the appendiceal orifice to aid in removal as the patient will require a laparoscopic cecectomy. SURGEON: Arlene Cormier MD BLOOD LOSS: Minimal. ANESTHESIA: General. COMPLICATIONS: None. The risks, possible complications and alternatives to the procedure were explained to the patient. He elects to proceed. ENDOSCOPIC COURSE: The patient was conveyed to the operating room electively on 07/31/2017. General anesthesia was induced by the anesthesia staff. The patient was placed in the Curtis position. A digital rectal examination was performed. A colonoscope was inserted through the anus. It was easily advanced to the cecum. The prep was adequate. I identified the appendiceal orifice polyp. I was able to advance an endoscopic snare down into the lumen of the appendix. I was able to encircle this polyp and then pull it up somewhat out of the appendiceal lumen. I noted that I was going to be unable to remove the entire thing with the snare. So this is going to be an incomplete biopsy. I used the cut and then the cautery. I then advanced an endoscopic sclerotherapy needle. I injected 3 cc of Evelia ink into the submucosa around the appendiceal orifice. I advanced an endoscopic retrieval net. I was able to net the portion of the polyp that had been removed. It was then withdrawn slowly. I irrigated and aspirated extensively. I dragged the folds. The pullback was greater than a 16-minute pullback. The endoscope was then withdrawn under direct vision. I will see the patient in my office. I will plan for a laparoscopic cecectomy as a curative procedure sometime in the next few weeks. TRANSINT:[id number] Voice Confirmation ID: [id number] DOCUMENT ID: [id number] OPERATIVE REPORT [id number] KENYATTAISIS PARHAM ARLENE CORMIER MD at 0938 CC: [id number] DICTATION DATE: 08/15/17 1100 MANAGER HVAC: 08/15/17 1308 [facility] 07/31/17 [place] [id number] [place] [address]
[~2017-07-31 08:36] MED LIST changes: +AMOXICILLIN500 M1 PO; +CYPROHEPTADINE H4 MG PO; +DEPAKOTE500 MG PO; +FLORAJEN3 CAPS460 MG PO; +KLOR-CON 1010 MEQ PO; +PROZAC40 MG PO; +STELAZINE1 MG PO; +TEGRETOL200 MG PO; +VALIUM10 MG PO; +VALIUM5 MG PO
[2017-07-31 09:13] VITALS: BP 111/70; Ht 190.5 cm; Wt 71.2 kg
[2017-07-31 09:53] LABS: HEMATOCRIT 36.6 % (42.0-54.0); HEMOGLOBIN 12.3 g/dL (13.5-17.5); MCH 27.2 pg (26.0-34.0); MCHC 33.6 g/dL (31.0-37.0); MEAN PLATELET VOLUME 8.3 fL (7.4-10.4); RBC 4.52 10x6/uL (4.20-6.10); RDW 15.1 % (11.5-14.5)
== END 2017-07-31 16:55 | disposition home or self-care (01) ==
LOC: D.OPS 08:36 → D.PAN 10:45 → D.OPS 10:45 → D.PAN 11:00 → D.OPS 14:00 → D.PAN 14:00 → D.OPS 16:55
PROVIDERS: Anesthesiology
DX: K63.5 Polyp of colon (principal); F17.200 Nicotine dependence, unspecified, uncomplicated; K21.9 Gastro-esophageal reflux disease without esophagitis; J44.9 Chronic obstructive pulmonary disease, unspecified; Z01.812 Encounter for preprocedural laboratory examination

== ENCOUNTER 2017-08-17 18:51 | Emergency (ER) | payer MEDICARE ==
[2017-07-31 09:13] VITALS: BMI 19.6
[2017-08-17 19:33] LABS: BASOPHILS 0.2 % (0-2); EOSINOPHILS 0.5 % (0-7); HEMATOCRIT 34.2 % (42.0-54.0); HEMOGLOBIN 11.4 g/dL (13.5-17.5); IMMATURE GRANULOCYTES 0.3 % (0-5); LYMPHOCYTES 14.5 % (15-50); MCH 26.8 pg (26.0-34.0); MCHC 33.3 g/dL (31.0-37.0); MCV 80.5 fL (80.0-100.0); MEAN PLATELET VOLUME 8.1 fL (7.4-10.4); MONOCYTES 7.3 % (2-11); NEUTROPHILS 77.2 % (40-80); PLATELET COUNT 425 10x3/uL (130-400); RBC 4.25 10x6/uL (4.20-6.10); RDW 15.7 % (11.5-14.5); WBC 13.2 10x3/uL (4.8-10.8)
[2017-08-17 19:58] LABS: ALBUMIN 2.9 g/dL (3.4-5.0); ANION GAP 15.7 mmol/L (8-16); BILIRUBIN - TOTAL 0.41 mg/dL (0.2-1.3); CALCIUM 9.5 mg/dL (8.5-10.1); CARBON DIOXIDE 26.2 mmol/L (21.0-32.0); CREATININE - SERUM 1.4 mg/dL (0.6-1.3); POTASSIUM - SERUM 3.9 mmol/L (3.5-5.1); PROTEIN - SERUM 7.8 g/dL (6.4-8.2)
[2017-08-17 23:25] LABS: APPEARANCE CLEAR (CLEAR); BILIRUBIN NEGATIVE (NEGATIVE); COLOR YELLOW (YELLOW); GLUCOSE NEGATIVE (NEGATIVE); KETONE NEGATIVE (NEGATIVE); NITRITE POSITIVE (NEGATIVE); PROTEIN TRACE mg/dL (NEGATIVE); SPECIFIC GRAVITY 1.005 (1.005-1.020); UROBILINOGEN NORMAL (NORMAL)
[2017-08-17 23:26] LABS: BACTERIA FEW /hpf (NONE SEEN); EPITHELIAL CELLS 0-5 /hpf (0-5); RED CELLS - URINE 0-5 /hpf (0-5); WHITE CELLS - URINE 0-5 /hpf (0-5); YEAST >1+ WITH HYPHAE /hpf (NONE SEEN)
== END 2017-08-18 01:00 | disposition home or self-care (01) ==
LOC: D.ER 18:51
PROVIDERS: Emergency Medicine
DX: R11.2 Nausea with vomiting, unspecified (principal); R10.9 Unspecified abdominal pain; N13.30 Unspecified hydronephrosis; R19.7 Diarrhea, unspecified; J44.9 Chronic obstructive pulmonary disease, unspecified; K21.9 Gastro-esophageal reflux disease without esophagitis; Z85.51 Personal history of malignant neoplasm of bladder; F17.200 Nicotine dependence, unspecified, uncomplicated

== ENCOUNTER 2017-08-20 02:26 | Emergency (ER) | payer MEDICARE ==
[2017-07-31 09:13] VITALS: BMI 19.6
[2017-08-20 02:52] LABS: BASOPHILS 0.2 % (0-2); EOSINOPHILS 0.4 % (0-7); HEMATOCRIT 34.9 % (42.0-54.0); HEMOGLOBIN 11.5 g/dL (13.5-17.5); IMMATURE GRANULOCYTES 0.4 % (0-5); LYMPHOCYTES 13.9 % (15-50); MCH 26.4 pg (26.0-34.0); MCV 80.2 fL (80.0-100.0); MEAN PLATELET VOLUME 8.2 fL (7.4-10.4); MONOCYTES 6.9 % (2-11); NEUTROPHILS 78.2 % (40-80); PLATELET COUNT 469 10x3/uL (130-400); RBC 4.35 10x6/uL (4.20-6.10); RDW 15.7 % (11.5-14.5); WBC 10.3 10x3/uL (4.8-10.8)
[2017-08-20 03:11] LABS: ALBUMIN 2.8 g/dL (3.4-5.0); BILIRUBIN - TOTAL 0.39 mg/dL (0.2-1.3); CALCIUM 9.3 mg/dL (8.5-10.1); CARBON DIOXIDE 26.6 mmol/L (21.0-32.0); CREATININE - SERUM 1.6 mg/dL (0.6-1.3); POTASSIUM - SERUM 3.6 mmol/L (3.5-5.1); PROTEIN - SERUM 7.8 g/dL (6.4-8.2)
[2017-08-20 03:23] LABS: APPEARANCE CLEAR (CLEAR); COLOR YELLOW (YELLOW)
[2017-08-20 03:24] LABS: BILIRUBIN NEGATIVE (NEGATIVE); GLUCOSE NEGATIVE (NEGATIVE); KETONE NEGATIVE (NEGATIVE); NITRITE POSITIVE (NEGATIVE); PROTEIN NEGATIVE (NEGATIVE); UROBILINOGEN NORMAL (NORMAL)
[2017-08-20 03:25] LABS: BACTERIA FEW /hpf (NONE SEEN); EPITHELIAL CELLS 0-5 /hpf (0-5); RED CELLS - URINE 0-5 /hpf (0-5); WHITE CELLS - URINE 0-5 /hpf (0-5)
[2017-08-20 03:30] LABS: AMYLASE - SERUM 117 U/L (25-115); LIPASE 88 U/L (73-393)
== END 2017-08-20 08:50 | disposition home or self-care (01) ==
LOC: D.ER 02:26
PROVIDERS: Family Medicine
DX: N39.0 Urinary tract infection, site not specified (principal)

== ENCOUNTER 2017-08-22 19:43 | Inpatient (IN) | payer MEDICARE ==
[~2017-08-22] VITALS: Ht 190.5 cm; Wt 68.8 kg
--- NOTE | ~2017-08-22 | OP ---
PATIENT NAME: ISIS YOU MEDICAL RECORD: [id number] :61 LOCATION:D. D.2132 ADMISSION DATE:08/22/17 SURGEON: ARLENE BARLOW MD DATE OF OPERATION: 09/04/2017 SURGEON: Arlene Barlow MD ANESTHESIA: General anesthesia by Sunny Hester CRNA. PREOPERATIVE DIAGNOSIS: Left pyonephrosis, infected 5 mm left renal stone, left ureteroileal anastomotic stricture. PROCEDURE: Left percutaneous nephrolithotomy and left ureteral stent insertion 8-Kittitian x 26 cm without string attached. FINDINGS: Radiodense 5 mm left lower pole stone. CLINICAL HISTORY: This is a 52-year-old male, who has schizophrenia and he also has issue with drug abuse. Last year, he was in [place] where he had a radical cystoprostatectomy with ileal conduit creation for bladder cancer, which was invasive. Around July of last year, he was in the hospital here in [place] with left pyelonephritis due to gram-positive bacteria. He was treated with IV antibiotics at that time. Now, he comes back on 08/22/2017 again with pyelonephritis. Cultures initially grew gram positive bacteria of 2 different species and now the cultures are growing fungi. CT scan shows a 5-mm stone in the left lower pole of the kidney. There is some left hydronephrosis. Lasix renal scan was obtained and it showed complete obstruction of left renal system. The right side is not obstructed at all. He had placement of a nephrostomy access with a view to left percutaneous nephrolithotomy to remove the infected left kidney stone. When interventional radiology placed the access, they got pus out of the left kidney. There was a tight distal ureteral stricture on the left side where it anastomosis into the ileal conduit. This was balloon dilated by the interventional radiologist. A nephroureteral stent is in place. Today, he comes to the operating room to have a left percutaneous nephrolithotomy to remove the infected kidney stone. I will also be inserting a large indwelling double-J stent to keep the left ureteroileal anastomosis open until he can see his urologist in [place] to get this definitively resolved. Since he is already on multiple IV antibiotics prescribed by infectious disease, he was not given any further antibiotics in the OR. DESCRIPTION OF PROCEDURE: The patient was given induction of general anesthesia in supine position. He was then turned into the prone position on the Zaid frame. He was prepped and draped. The nephroureteral stent has coils within it to maintain the loop within the renal pelvis. I had to cut the stent near its hub in order to free the string which maintains the coil. As I tried to place in a sensor wire to attempt to straighten out the coil, I realized I was losing my access as the stent was coming out, but the coil was not straightening out. I therefore ceased further attempts to get access and I called Dr. Pérez. Dr. Pérez managed to get a flexible wire through and after removing the nephroureteral catheter, he managed to get an usable access for me. Two Amplatz Super Stiff wires were left by Dr. Pérez which go down the ureter and into the ileal conduit. One of these wires was clamped to the drapes as a safety wire. I used the other one for a working wire. An 1-cm incision was made on either side of the wires. A balloon dilator was used to dilate the OPERATIVE REPORT [id number] KENYATTA,ISIS tract. 20 atmospheres of pressure were used and then the 30-Kittitian working sheath was inserted over the balloon. The stone is visible as a radiodensity. The sheath was placed so that the tip was just at the level of the radiodensity. The balloon was then deflated and removed entirely. Once we put the scope in, we could see the stone quite clearly. A Cook Fmwb-H-Rlacso basket was used to completely remove the stone. Further nephroscopy revealed no further stones. At this point, the scope was removed and over the working Super Stiff wire, we inserted the 8-Kittitian x 26 cm ureteral stent. The string on the distal end of the stent was removed. The stent was pushed down the guidewire and then the nephroscope was used to confirm location. Once the stent was in correct position, the pusher was used to hold the stent in position while the Amplatz Super Stiff wire was entirely removed. Nephroscopy confirmed that the proximal end of the stent did coil within the renal pelvis. The distal end of the stent was confirmed on fluoroscopy to go into the ileal conduit. We then inserted a 16-Kittitian Guillen catheter down the working sheath to serve as a nephrostomy tube. The balloon was not inflated. The sheath was cut longitudinally and removed from the surface of the catheter. The catheter was sutured in using a 2-0 nylon as a drain suture. Dressings were applied. The catheter was put to bag drainage. I will remove the nephrostomy tube in about 2 days' time. He will probably go home with the indwelling ureteral stent to see his urologist in [place] as mentioned earlier. TRANSINT:[id number] Voice Confirmation ID: [id number] DOCUMENT ID: [id number] ARLENE BARLOW MD at 0819 CC: [id number] DICTATION DATE: 09/04/17 1549 CERAMIC WORKER: 09/04/17 1626 ADM IN [facility] [address] [place] [id number]
--- NOTE | ~2017-08-22 | HEMODYNAMI ---
PATIENT:ISIS YOU MEDICAL RECORD: [id number] : 61 LOCATION:[facility] D.213 ADMISSION DATE: 08/22/17 Generatedon:09/02/201711:23 Patient name: ISIS YOU Patient #: [id number] SSN: : 1965 Date of study: 09/02/2017 Page: Of Hemodynamic Procedure Report Patient Data Patient Demographics Procedure consent was obtained First Name: ISIS Gender: Male Last Name: KENYATTA : 1965 Middle Initial: D Age: 52 year(s) Patient #: [id number] Race: Unknown Additional ID: [id number] Contact details Address: [address] [place] [address] [address] State: [place] City: [place] Zip code: [address] Admission Admission Data Admission Date: 08/22/2017 Admission Time: 21:04 Room #: [facility] Procedure Procedure Types Cath Procedure Peripheral Cath Diagnostic Procedure Miscellaneous Procedure Description Procedure Date Procedure Date: 09/02/2017 Procedure Start Time: 10:44 Procedure Staff Name Function Mir Barboza MD Performing Physician Jim Reyna RT Scrub Julia Stanford RT Monitor Wiley Sherwood RN Nurse Procedure Data Cath Procedure Fluoroscopy Diagnostic fluoroscopy Total fluoroscopy Time: 7.8 time: 7.8 min min Diagnostic fluoroscopy Total fluoroscopy dose: 105 dose: 105 mGy mGy Contrast Material Contrast Material Type Amount (ml) Isovue 300 35 Diagnostic catheters Device Type Used For End Catheter Placement Merit Impress KA2 5Fr 65CM catheter ([id number]) Procedure Medications Medication Administration Route Dosage Lidocaine 1% added to field 20 Heparin Flush Bag added to field 1 bags (1000units/500ml NS) Oxygen NC 3 l/min Versed I.V. 1 mg Fentanyl I.V. 50 mcg Versed I.V. 1 mg Fentanyl I.V. 50 mcg Versed I.V. 1 mg Fentanyl I.V. 50 mcg Versed I.V. 1 mg Fentanyl I.V. 50 mcg Hemodynamics Rest Heart Rate: 68 (bpm) Snapshots Pre Cath Intra NCS Post Cath Vital Signs Time Heart Resp SPO2 etCO2 NIBP (mmHg) Rhythm Pain Sedation Rate (ipm) (%) (mmHg) Status Level (bpm) 10:27:51 68 9 98 0 Measuring NSR 0 (11) 10(A) , No pain 10:28:18 75 9 97 0 138/82(114) NSR 0 (11) 10(A) , No pain 10:32:26 69 10 100 36.4 137/91(121) NSR 0 (11) 10(A) , No pain 10:36:35 70 13 100 34.1 140/89(99) NSR 0 (11) 10(A) , No pain 10:40:47 68 10 100 37.2 139/88(119) NSR 0 (11) 10(A) , No pain 10:44:59 69 11 100 37.9 141/88(120) NSR 0 (11) 10(A) , No pain 10:49:07 68 10 100 40.2 140/93(123) NSR 0 (11) 10(A) , No pain 10:53:15 71 9 99 38.7 137/87(106) NSR 0 (11) 10(A) , No pain 10:57:23 79 9 99 40.2 136/90(112) NSR 0 (11) 10(A) , No pain 11:01:33 74 10 99 40.9 146/90(125) NSR 0 (11) 10(A) , No pain 11:05:45 76 10 99 40.2 145/96(123) NSR 0 (11) 10(A) , No pain 11:09:57 80 13 99 38.7 157/101(124) NSR 0 (11) 10(A) , No pain 11:14:11 94 14 98 31.1 168/114(143) NSR 0 (11) 10(A) , No pain 11:17:25 88 10 98 27.3 169/108(135) NSR 0 (11) 10(A) , No pain 11:21:37 87 9 98 35.6 159/105(140) NSR 0 (11) 10(A) , No pain Medications Time Medication Route Dose Verified Delivered Reason Notes Effe ctiveness by by 10:25:08 Lidocaine 1% added 20ml Mir for local to vial Tamra anesthetic field LAMB 10:25:26 Heparin Flush added 1 Mir used for Bag to bags Tamra procedure (1000units/500ml field LAMB NS) 10:25:40 Oxygen NC 3 Mir l/min Tamra LAMB 10:46:25 Versed I.V. 1 mg Mir jama for Tamra sedation 10:46:39 Fentanyl I.V. 50 Mir wiley for mcg Tamra sedation 10:50:51 Versed I.V. 1 mg Mir Wiley for Tamra Presley RN sedation 10:51:01 Fentanyl I.V. 50 Mir Wiley for mcg Tamra Presley RN sedation 11:10:35 Versed I.V. 1 mg Mir Wiley for Tamra Presley RN sedation 11:10:44 Fentanyl I.V. 50 Mir Wiley for mcg Tamra Presley RN sedation 11:15:19 Versed I.V. 1 mg Mir Wiley for Tamra Presley RN sedation 11:15:27 Fentanyl I.V. 50 Mir Wiley for mcg Tamra Presley RN sedation Procedure Log Time Note 10:17:44 Jim Reyna RT (R) (CV) sent for patient. Start room use. 10:17:54 Time tracking: Regular hours 10:17:59 Plan of Care:Hemodynamics will remain stable., Cardiac rhythm will remain stable., Comfort level will be maintained., Respiratory function will remain adequate., Patient/ family verbilizes understanding of procedure., Procedure tolerated without complication., Recovers from procedure without complications.. 10:18:09 Patient received from panpan II to IR Alert and oriented. Tansferred to table in Supine position. 10:18:10 Correct patient and procedure confirmed by team. 10:18:12 Signed procedure consent form obtained from patient. 10:18:14 Full Disclosure recording started 10:18:14 - 10:18:20 H&P Date Dictated: 09/02/2017 Within 30 days and on chart.. 10:18:21 Pre-procedure instructions explained to patient. 10:18:22 Pre-op teaching completed and patient verbalized understanding. 10:18:28 Family unavailable. 10:18:31 Patient NPO since Midnight. 10:18:36 Is the patient allergic to Iodine/contrast media? No. 10:18:38 Is patient on blood thinner?N/A 10:18:40 Patient diabetic? No. 10:18:41 - 10:18:42 ----Pre-sedation anethsthesia assessment.---- 10:18:45 Previous problem with sedation/anesthesia? No ? 10:18:46 Snore? Yes 10:18:48 Sleep apnea? No 10:18:50 Deviated septum? No 10:18:51 Opens mouth fully? Yes 10:18:53 Sticks out tongue? Yes 10:18:56 Airway obstruction? No ? 10:18:58 Dentures? No ? 10:19:02 Use device set IR Diagnostic 10:19:03 Bag Decanter () opened to sterile field. 10:19:04 Sterile Angiographic Pack opened to sterile field. 10:23:29 KIT, INTRODUCER ACCUSTICK II W/C ([id number]) opened to sterile field. 10:23:42 CHIBA 20 X 15 needle opened to sterile field. 10:25:08 Lidocaine 1% 20ml vial added to field was administered by Mir moon MD; for local anesthetic; 10:25:26 Heparin Flush Bag (1000units/500ml NS) 1 bags added to field was administered by Mir Barboza MD; used for procedure; 10:25:40 Oxygen 3 l/min NC was administered by wiley Joseph 10:26:01 ECG and BP/O2 sat monitors applied to patient. 10:26:02 Vital chart was started 10:26:03 Baseline sample Acquired. 10:26:09 - 10:27:16 IV patent on arrival in right forearm with 0.9% NaCl at KVO. 10:27:43 Left abdomen area was prepped with chlora-prep and draped in sterile fashion 10:27:49 Alarms reviewed 10:28:01 Sharps counted by scrub and verified 10:36:15 STOPCOCK 3-Way Large Bore ([id number]) opened to sterile field. 10:41:01 Physician arrived 10:42:13 --------ALL STOP TIME OUT------ 10:42:14 Final Timeout: patient, procedure, and site verified with staff and physician. All members of the team are in agreement. 10:42:28 Sedation plan: IV Moderate Sedation Medication:Versed, Fentanyl 10:44:20 Procedure started. 10:44:29 Local anesthetic to Abdominal area with Lidocaine 1% by Mir Barboza MD.INITIAL ACCESS ONLY 10:46:25 Versed 1 mg I.V. was administered by wiley; for sedation; 10:46:39 Fentanyl 50 mcg I.V. was administered by wiley; for sedation; 10:50:51 Versed 1 mg I.V. was administered by Wiley Sherwood RN; for sedation; 10:51:01 Fentanyl 50 mcg I.V. was administered by Wiley Sherwood RN; for sedation ; 11:01:55 GLIDE WIRE ANGLE 180cm ([id number]) opened to sterile field. 11:02:03 TORQUE DEVICE PLASTIC .038 ( TD01) opened to sterile field. 11:02:12 A Layer 7 Technologies KA2 5Fr 65CM catheter ([id number]) was advanced over the wire and used for . 11:03:40 ROADRUNNER .035 145 glide wire ([id number]) opened to sterile field. 11:10:11 DILATOR, VESSEL 05/24 opened to sterile field. 11:10:20 AMPLATZ Super stiff 180cm wire ([id number]) opened to sterile field. 11:10:27 INFLATOR BasixTOUCH (NM8588) opened to sterile field. 11:10:35 Versed 1 mg I.V. was administered by Wiley Sherwood RN; for sedation; 11:10:44 Fentanyl 50 mcg I.V. was administered by Wiley Sherwood RN; for sedation ; 11:10:49 10FR Nephroureterostomy Stent (X02486) opened to sterile field. 11:11:19 Inflation number: 1 A POWERFLEX PRO 7.0 x 40 x 80cm balloon ([id number]) was prepped and advanced across the Undefined1, then inflated . 11:15:19 Versed 1 mg I.V. was administered by Wiley Sherwood RN; for sedation; 11:15:27 Fentanyl 50 mcg I.V. was administered by Wiley Sherwood RN; for sedation ; 11:20:54 Procedure ended.(Physican Out) 11:21:19 Fluoroscopy time 07.80 minutes. 11:21:22 Fluoroscopy dose: 105 mGy 11:21:22 Flurop Dose total: 105 11:21:28 Contrast amount:Isovue 300 35ml. 11:21:30 Sharps counted by scrub and verified 11:22:55 Procedure and supply charges have been captured, reviewed, submitted an d are correct. 11:23:34 Vital chart was stopped Intervention Summary Intervention Notes Time ActionType Lesion and Equipment Action# Pressure Duration Attributes Used 11:11:19 Inflate Undefined1 POWERFLEX 1 0 00:00 balloon PRO 7.0 x 40 x 80cm balloon ([id number]) Device Usage Item Name Manufacture Quantity Catalog Hospital Part Current M inimal Lot# / Number Charge Number Stock Stock Serial# Code Bag Decanter Microtek 1 [id number] 42051 [id number] 5 () Medical Inc. Sterile Cardinal 1 [id number] 632547 831319 5 Angiographic Pack Health KIT, INTRODUCER Crownpoint 1 [id number] 700113 357024 442840 5 ACCUSTICK II W/C Scientific ([id number]) CHIBA 20 X 15 Cook Medical 1 M35129 209468 399162 5 [id number] needle STOPCOCK 3-Way Cook Medical 1 Y96362 177725 6119 277911 5 [id number] Large Bore ([id number]) GLIDE WIRE ANGLE Terumo 1 BL1014 123365 190229 016962 5 180cm (YF1227) TORQUE DEVICE Crownpoint 1 TD01 784631 376480 324422 5 PLASTIC .038 ( Scientific TD01) Merit Impress KA2 Merit 1 [id number] 915589 824870 5 5Fr 65CM catheter Medical ([id number]) ROADRUNNER .035 Cook Medical 1 G74430 851467 718747 243967 5 [id number] 145 glide wire (O47304) DILATOR, VESSEL Cook Medical 1 U05392 144150 87083 395783 5 05/24 AMPLATZ Super Crownpoint 1 [id number] 834993 172879 5 stiff 180cm wire Scientific ([id number]) INFLATOR Merit 1 EU0091 183214 903066 358322 5 BasixTOUCH Medical (EZ0898) 10FR Cook Medical 1 A18186 319889 205318 579024 5 Nephroureterostomy Stent (E13010) POWERFLEX PRO 7.0 Cardinal 1 [id number] 110531 291911 265701 5 x 40 x 80cm Health balloon ([id number]) Signature Audit Shobonier Stage Time Signature Unsigned Intra-Procedure 09/02/2017 Julia Stanford 11:23:31 AM RT(R) Signatures Monitor : Julia Stanford RT Signature : Date : Time : [place] [id number] [place] [address]
[2017-08-22 20:02] LABS: APPEARANCE SLT CLOUDY (CLEAR); BILIRUBIN NEGATIVE (NEGATIVE); COLOR YELLOW (YELLOW); GLUCOSE NEGATIVE (NEGATIVE); KETONE NEGATIVE (NEGATIVE); NITRITE POSITIVE (NEGATIVE); PROTEIN NEGATIVE (NEGATIVE); UROBILINOGEN NORMAL (NORMAL)
[2017-08-22 20:04] LABS: WHITE CELLS - URINE 0-5 /hpf (0-5)
[2017-08-22 20:05] LABS: BACTERIA MODERATE /hpf (NONE SEEN)
[2017-08-22 20:06] LABS: YEAST <1+ /hpf (NONE SEEN)
[2017-08-22 20:38] LABS: BASOPHILS 0.3 % (0-2); EOSINOPHILS 0.7 % (0-7); HEMATOCRIT 32.4 % (42.0-54.0); HEMOGLOBIN 10.8 g/dL (13.5-17.5); IMMATURE GRANULOCYTES 0.4 % (0-5); LYMPHOCYTES 16.6 % (15-50); MCH 26.7 pg (26.0-34.0); MCHC 33.3 g/dL (31.0-37.0); MCV 80.2 fL (80.0-100.0); MEAN PLATELET VOLUME 8.1 fL (7.4-10.4); MONOCYTES 10.1 % (2-11); NEUTROPHILS 71.9 % (40-80); PLATELET COUNT 494 10x3/uL (130-400); RBC 4.04 10x6/uL (4.20-6.10); RDW 15.8 % (11.5-14.5); WBC 11.2 10x3/uL (4.8-10.8)
[2017-08-22 20:50] LABS: ALBUMIN 2.7 g/dL (3.4-5.0); ANION GAP 16.1 mmol/L (8-16); BILIRUBIN - TOTAL 0.3 mg/dL (0.2-1.3); CALCIUM 8.7 mg/dL (8.5-10.1); CARBON DIOXIDE 25.5 mmol/L (21.0-32.0); CREATININE - SERUM 1.7 mg/dL (0.6-1.3); POTASSIUM - SERUM 3.6 mmol/L (3.5-5.1); PROTEIN - SERUM 7.5 g/dL (6.4-8.2)
[2017-08-23 01:42] VITALS: BP 106/72; BMI 19.1
[2017-08-23 06:14] LABS: BASOPHILS 0.2 % (0-2); EOSINOPHILS 1.5 % (0-7); HEMATOCRIT 32.1 % (42.0-54.0); HEMOGLOBIN 10.6 g/dL (13.5-17.5); IMMATURE GRANULOCYTES 0.4 % (0-5); MCH 26.4 pg (26.0-34.0); MEAN PLATELET VOLUME 8.3 fL (7.4-10.4); NEUTROPHILS 63.9 % (40-80); PLATELET COUNT 512 10x3/uL (130-400); RBC 4.01 10x6/uL (4.20-6.10); RDW 15.8 % (11.5-14.5); WBC 9.5 10x3/uL (4.8-10.8)
[2017-08-23 06:33] LABS: ANION GAP 13.4 mmol/L (8-16); CALCIUM 8.7 mg/dL (8.5-10.1); CARBON DIOXIDE 28.4 mmol/L (21.0-32.0); CREATININE - SERUM 1.7 mg/dL (0.6-1.3); POTASSIUM - SERUM 3.8 mmol/L (3.5-5.1)
[2017-08-23 11:04] VITALS: BMI 19.1
[2017-08-23 12:04] VITALS: Ht 190.5 cm; Wt 68.8 kg
[2017-08-23 17:14] LABS: % SATURATION 8 % (15-55); IRON 21 ug/dl (35-150); TOTAL IRON BIND CAPACITY 248 ug/dl (260-445); UNSAT IRON BIND CAPACITY 227 ug/dl (150-375)
[2017-08-23 18:56] LABS: UDS - AMPHET NEGATIVE QUAL (NEGATIVE); UDS - BARB NEGATIVE QUAL (NEGATIVE); UDS - BENZO POSITIVE QUAL (NEGATIVE); UDS - COCAINE NEGATIVE QUAL (NEGATIVE); UDS - OPIATE POSITIVE QUAL (NEGATIVE); UDS - PCP NEGATIVE QUAL (NEGATIVE); UDS - THC NEGATIVE QUAL (NEGATIVE)
[2017-08-24 07:11] LABS: BASOPHILS 0.3 % (0-2); HEMATOCRIT 30.1 % (42.0-54.0); HEMOGLOBIN 9.7 g/dL (13.5-17.5); IMMATURE GRANULOCYTES 0.4 % (0-5); LYMPHOCYTES 19.9 % (15-50); MCH 26.2 pg (26.0-34.0); MCHC 32.2 g/dL (31.0-37.0); MCV 81.4 fL (80.0-100.0); MEAN PLATELET VOLUME 8.2 fL (7.4-10.4); MONOCYTES 9.7 % (2-11); NEUTROPHILS 67.7 % (40-80); PLATELET COUNT 455 10x3/uL (130-400); RDW 15.8 % (11.5-14.5)
[2017-08-24 07:19] LABS: ANION GAP 12.1 mmol/L (8-16); CALCIUM 8.4 mg/dL (8.5-10.1); CARBON DIOXIDE 27.4 mmol/L (21.0-32.0); CREATININE - SERUM 1.6 mg/dL (0.6-1.3); POTASSIUM - SERUM 3.5 mmol/L (3.5-5.1)
[2017-08-24 08:00] VITALS: BP 106/57
[2017-08-24 13:40] VITALS: BP 106/66
[2017-08-24 16:11] VITALS: BP 98/54
[2017-08-24 19:00] VITALS: BP 126/71
[2017-08-25 03:34] VITALS: BP 112/80
[2017-08-25 05:46] LABS: ANION GAP 12.3 mmol/L (8-16); BASOPHILS 0.2 % (0-2); CALCIUM 8.2 mg/dL (8.5-10.1); CARBON DIOXIDE 24.2 mmol/L (21.0-32.0); CREATININE - SERUM 1.5 mg/dL (0.6-1.3); EOSINOPHILS 2.1 % (0-7); HEMATOCRIT 26.4 % (42.0-54.0); HEMOGLOBIN 8.7 g/dL (13.5-17.5); IMMATURE GRANULOCYTES 0.4 % (0-5); LYMPHOCYTES 16.4 % (15-50); MCH 26.3 pg (26.0-34.0); MCV 79.8 fL (80.0-100.0); MEAN PLATELET VOLUME 8.3 fL (7.4-10.4); MONOCYTES 9.4 % (2-11); NEUTROPHILS 71.5 % (40-80); PLATELET COUNT 411 10x3/uL (130-400); POTASSIUM - SERUM 3.5 mmol/L (3.5-5.1); RBC 3.31 10x6/uL (4.20-6.10); RDW 15.6 % (11.5-14.5); WBC 9.9 10x3/uL (4.8-10.8)
[2017-08-25 08:32] VITALS: BP 94/53
[2017-08-25 11:24] VITALS: BP 97/57
[2017-08-25 15:46] VITALS: BP 100/61
[2017-08-25 20:00] VITALS: BP 119/71
[2017-08-26] VITALS: BP 112/76
[2017-08-26 04:00] VITALS: BP 118/72
[2017-08-26 06:41] LABS: ANION GAP 14.2 mmol/L (8-16); CALCIUM 8.1 mg/dL (8.5-10.1); CARBON DIOXIDE 25.4 mmol/L (21.0-32.0); CREATININE - SERUM 1.6 mg/dL (0.6-1.3); POTASSIUM - SERUM 3.6 mmol/L (3.5-5.1)
[2017-08-26 06:56] LABS: BASOPHILS 0.1 % (0-2); EOSINOPHILS 2.2 % (0-7); HEMATOCRIT 26.5 % (42.0-54.0); HEMOGLOBIN 8.6 g/dL (13.5-17.5); IMMATURE GRANULOCYTES 0.3 % (0-5); LYMPHOCYTES 19.4 % (15-50); MCH 26.1 pg (26.0-34.0); MCHC 32.5 g/dL (31.0-37.0); MCV 80.5 fL (80.0-100.0); MEAN PLATELET VOLUME 8.4 fL (7.4-10.4); MONOCYTES 8.5 % (2-11); NEUTROPHILS 69.5 % (40-80); PLATELET COUNT 444 10x3/uL (130-400); RBC 3.29 10x6/uL (4.20-6.10); RDW 15.5 % (11.5-14.5); WBC 9.8 10x3/uL (4.8-10.8)
[2017-08-26 07:55] VITALS: BP 151/79
[2017-08-26 11:13] LABS: FOLATE (FOLIC ACID) - SERUM 2.4 ng/mL (>3.0)
[2017-08-26 12:00] VITALS: BP 103/63
[2017-08-26 16:17] VITALS: BP 108/62
[2017-08-26 19:00] VITALS: BP 133/79
[2017-08-27 04:00] VITALS: BP 121/75
[2017-08-27 05:57] LABS: BASOPHILS 0.1 % (0-2); EOSINOPHILS 1.5 % (0-7); HEMATOCRIT 30.9 % (42.0-54.0); HEMOGLOBIN 9.9 g/dL (13.5-17.5); IMMATURE GRANULOCYTES 0.3 % (0-5); LYMPHOCYTES 15.7 % (15-50); MCH 26.3 pg (26.0-34.0); MEAN PLATELET VOLUME 8.4 fL (7.4-10.4); MONOCYTES 8.1 % (2-11); NEUTROPHILS 74.3 % (40-80); PLATELET COUNT 478 10x3/uL (130-400); RBC 3.77 10x6/uL (4.20-6.10); RDW 15.5 % (11.5-14.5); WBC 10.4 10x3/uL (4.8-10.8)
[2017-08-27 06:21] LABS: CALCIUM 8.7 mg/dL (8.5-10.1); CARBON DIOXIDE 30.2 mmol/L (21.0-32.0); CREATININE - SERUM 1.7 mg/dL (0.6-1.3); POTASSIUM - SERUM 3.2 mmol/L (3.5-5.1)
[2017-08-27 08:46] VITALS: BP 119/77
[2017-08-27 11:23] VITALS: BP 122/73
[2017-08-27 15:39] VITALS: BP 132/66
[2017-08-27 20:00] VITALS: BP 123/71
[2017-08-28] VITALS: BP 137/83
[2017-08-28 04:00] VITALS: BP 116/89
[2017-08-28 05:53] LABS: APPEARANCE HAZY (CLEAR); COLOR YELLOW (YELLOW); GLUCOSE NEGATIVE (NEGATIVE); KETONE NEGATIVE (NEGATIVE); NITRITE NEGATIVE (NEGATIVE); PROTEIN NEGATIVE (NEGATIVE); SPECIFIC GRAVITY 1.005 (1.005-1.020); UROBILINOGEN NORMAL (NORMAL)
[2017-08-28 05:54] LABS: BILIRUBIN NEGATIVE (NEGATIVE); EPITHELIAL CELLS 0-5 /hpf (0-5); RED CELLS - URINE 0-5 /hpf (0-5); WHITE CELLS - URINE 0-5 /hpf (0-5)
[2017-08-28 05:55] LABS: BACTERIA FEW /hpf (NONE SEEN); YEAST >1+ /hpf (NONE SEEN)
[2017-08-28 06:18] LABS: BASOPHILS 0.1 % (0-2); EOSINOPHILS 1.5 % (0-7); HEMATOCRIT 28.2 % (42.0-54.0); HEMOGLOBIN 9.1 g/dL (13.5-17.5); IMMATURE GRANULOCYTES 0.2 % (0-5); MCH 26.1 pg (26.0-34.0); MCHC 32.3 g/dL (31.0-37.0); MCV 80.8 fL (80.0-100.0); MEAN PLATELET VOLUME 8.6 fL (7.4-10.4); MONOCYTES 8.6 % (2-11); NEUTROPHILS 70.6 % (40-80); PLATELET COUNT 454 10x3/uL (130-400); RBC 3.49 10x6/uL (4.20-6.10); RDW 15.7 % (11.5-14.5); WBC 10.7 10x3/uL (4.8-10.8)
[2017-08-28 06:33] LABS: ANION GAP 11.4 mmol/L (8-16); CALCIUM 8.2 mg/dL (8.5-10.1); CARBON DIOXIDE 28.8 mmol/L (21.0-32.0); CREATININE - SERUM 1.6 mg/dL (0.6-1.3); POTASSIUM - SERUM 3.2 mmol/L (3.5-5.1)
[2017-08-28 08:28] VITALS: BP 118/78
[2017-08-28 11:38] VITALS: BP 108/65
[2017-08-28 15:18] VITALS: BP 125/88
[2017-08-28 19:00] VITALS: BP 145/84
[2017-08-29 04:00] VITALS: BP 129/87
[2017-08-29 04:49] LABS: BASOPHILS 0.2 % (0-2); EOSINOPHILS 1.6 % (0-7); HEMATOCRIT 26.9 % (42.0-54.0); HEMOGLOBIN 8.8 g/dL (13.5-17.5); IMMATURE GRANULOCYTES 0.3 % (0-5); LYMPHOCYTES 18.4 % (15-50); MCH 26.3 pg (26.0-34.0); MCHC 32.7 g/dL (31.0-37.0); MCV 80.3 fL (80.0-100.0); MEAN PLATELET VOLUME 8.3 fL (7.4-10.4); MONOCYTES 8.7 % (2-11); NEUTROPHILS 70.8 % (40-80); PLATELET COUNT 441 10x3/uL (130-400); RBC 3.35 10x6/uL (4.20-6.10); RDW 15.8 % (11.5-14.5)
[2017-08-29 05:01] LABS: ANION GAP 12.6 mmol/L (8-16); CALCIUM 8.2 mg/dL (8.5-10.1); CARBON DIOXIDE 28.6 mmol/L (21.0-32.0); CREATININE - SERUM 1.7 mg/dL (0.6-1.3)
[2017-08-29 05:16] LABS: POTASSIUM - SERUM 3.2 mmol/L (3.5-5.1)
[2017-08-29 08:18] VITALS: BP 136/91
[2017-08-29 09:52] LABS: ANION GAP 12.4 mmol/L (8-16); CALCIUM 8.4 mg/dL (8.5-10.1); CARBON DIOXIDE 30.1 mmol/L (21.0-32.0); CREATININE - SERUM 1.7 mg/dL (0.6-1.3); POTASSIUM - SERUM 3.5 mmol/L (3.5-5.1)
[2017-08-29 11:11] VITALS: BP 138/79
[2017-08-29 21:54] VITALS: BP 141/90
[2017-08-30 01:14] VITALS: BP 128/85
[2017-08-30 06:08] VITALS: BP 129/79
[2017-08-30 09:18] VITALS: BP 114/81
[2017-08-30 12:00] VITALS: BP 136/70
[2017-08-30 16:18] LABS: BASOPHILS 0.2 % (0-2); EOSINOPHILS 3.5 % (0-7); HEMATOCRIT 25.8 % (42.0-54.0); HEMOGLOBIN 8.3 g/dL (13.5-17.5); IMMATURE GRANULOCYTES 0.3 % (0-5); LYMPHOCYTES 17.6 % (15-50); MCH 25.9 pg (26.0-34.0); MCHC 32.2 g/dL (31.0-37.0); MCV 80.6 fL (80.0-100.0); MEAN PLATELET VOLUME 8.2 fL (7.4-10.4); MONOCYTES 9.4 % (2-11); PLATELET COUNT 410 10x3/uL (130-400); RDW 16.2 % (11.5-14.5); WBC 8.8 10x3/uL (4.8-10.8)
[2017-08-30 16:32] LABS: CALCIUM 8.2 mg/dL (8.5-10.1); CARBON DIOXIDE 28.1 mmol/L (21.0-32.0); CREATININE - SERUM 1.8 mg/dL (0.6-1.3); POTASSIUM - SERUM 3.1 mmol/L (3.5-5.1)
[2017-08-30 18:10] VITALS: BP 132/88
[2017-08-30 19:00] VITALS: BP 124/76
[2017-08-31 04:25] LABS: BASOPHILS 0.2 % (0-2); EOSINOPHILS 2.3 % (0-7); HEMATOCRIT 25.9 % (42.0-54.0); HEMOGLOBIN 8.6 g/dL (13.5-17.5); IMMATURE GRANULOCYTES 0.4 % (0-5); LYMPHOCYTES 14.5 % (15-50); MCH 26.1 pg (26.0-34.0); MCHC 33.2 g/dL (31.0-37.0); MCV 78.7 fL (80.0-100.0); MONOCYTES 9.2 % (2-11); NEUTROPHILS 73.4 % (40-80); PLATELET COUNT 396 10x3/uL (130-400); RBC 3.29 10x6/uL (4.20-6.10); RDW 15.9 % (11.5-14.5); WBC 9.5 10x3/uL (4.8-10.8)
[2017-08-31 04:34] LABS: CALCIUM 8.2 mg/dL (8.5-10.1); CARBON DIOXIDE 27.9 mmol/L (21.0-32.0); CREATININE - SERUM 1.7 mg/dL (0.6-1.3)
[2017-08-31 04:40] VITALS: BP 147/87
[2017-08-31 04:40] LABS: POTASSIUM - SERUM 2.9 mmol/L (3.5-5.1)
[2017-08-31 08:21] VITALS: BP 134/87
[2017-08-31 12:25] VITALS: BP 126/87
[2017-08-31 15:45] VITALS: BP 132/92
[2017-08-31 19:00] VITALS: BP 126/85
[2017-09-01] VITALS: BP 119/75
[2017-09-01 04:00] VITALS: BP 127/82
[2017-09-01 04:29] LABS: BASOPHILS 0.2 % (0-2); EOSINOPHILS 2.5 % (0-7); HEMATOCRIT 26.4 % (42.0-54.0); HEMOGLOBIN 8.7 g/dL (13.5-17.5); IMMATURE GRANULOCYTES 0.5 % (0-5); MCH 26.1 pg (26.0-34.0); MCV 79.3 fL (80.0-100.0); MEAN PLATELET VOLUME 8.3 fL (7.4-10.4); MONOCYTES 10.4 % (2-11); NEUTROPHILS 66.4 % (40-80); RBC 3.33 10x6/uL (4.20-6.10); RDW 15.8 % (11.5-14.5); WBC 9.5 10x3/uL (4.8-10.8)
[2017-09-01 04:43] LABS: PLATELET COUNT 519 10x3/uL (130-400)
[2017-09-01 04:48] LABS: ANION GAP 11.4 mmol/L (8-16); CALCIUM 8.1 mg/dL (8.5-10.1); CARBON DIOXIDE 29.8 mmol/L (21.0-32.0); CREATININE - SERUM 1.9 mg/dL (0.6-1.3); POTASSIUM - SERUM 3.2 mmol/L (3.5-5.1)
[2017-09-01 09:15] VITALS: BP 150/97
[2017-09-01 11:48] VITALS: BP 121/83
[2017-09-01 16:43] VITALS: BP 112/82
[2017-09-01 21:26] VITALS: BP 138/94
[2017-09-02] VITALS (12 sets, daily range): BP systolic 119–153; BP diastolic 82–97
[2017-09-02 05:59] LABS: BASOPHILS 0.2 % (0-2); EOSINOPHILS 2.4 % (0-7); HEMATOCRIT 27.1 % (42.0-54.0); HEMOGLOBIN 8.8 g/dL (13.5-17.5); IMMATURE GRANULOCYTES 0.6 % (0-5); MCH 25.9 pg (26.0-34.0); MCHC 32.5 g/dL (31.0-37.0); MCV 79.7 fL (80.0-100.0); MEAN PLATELET VOLUME 8.6 fL (7.4-10.4); MONOCYTES 10.3 % (2-11); NEUTROPHILS 65.5 % (40-80); PLATELET COUNT 561 10x3/uL (130-400); RDW 15.8 % (11.5-14.5); WBC 9.1 10x3/uL (4.8-10.8)
[2017-09-02 06:35] LABS: ANION GAP 11.3 mmol/L (8-16); CALCIUM 8.2 mg/dL (8.5-10.1); CARBON DIOXIDE 29.2 mmol/L (21.0-32.0); CREATININE - SERUM 1.9 mg/dL (0.6-1.3); POTASSIUM - SERUM 3.5 mmol/L (3.5-5.1)
[2017-09-02 08:06] LABS: INR 1.26 (0.85-1.17); PROTIME 15.4 SECONDS (11.6-15.0)
[2017-09-02 12:36] LABS: APPEARANCE TURBID (CLEAR); BILIRUBIN NEGATIVE (NEGATIVE); COLOR STRAW (YELLOW); GLUCOSE NEGATIVE (NEGATIVE); KETONE NEGATIVE (NEGATIVE); NITRITE NEGATIVE (NEGATIVE); PROTEIN 1+ mg/dL (NEGATIVE); SPECIFIC GRAVITY 1.005 (1.005-1.020); UROBILINOGEN NORMAL (NORMAL)
[2017-09-02 12:38] LABS: BACTERIA MANY /hpf (NONE SEEN); WHITE CELLS - URINE >50 /hpf (0-5); YEAST >1+ WITH HYPHAE /hpf (NONE SEEN)
[2017-09-02 12:40] LABS: EPITHELIAL CELLS RARE /hpf (0-5); MUCUS <1+ /lpf (NONE SEEN)
[2017-09-03] VITALS (8 sets, daily range): BP systolic 112–140; BP diastolic 62–91
[2017-09-03 06:28] LABS: BASOPHILS 0.1 % (0-2); EOSINOPHILS 0.1 % (0-7); HEMATOCRIT 27.9 % (42.0-54.0); IMMATURE GRANULOCYTES 0.4 % (0-5); LYMPHOCYTES 5.5 % (15-50); MCHC 32.3 g/dL (31.0-37.0); MCV 80.6 fL (80.0-100.0); MEAN PLATELET VOLUME 8.6 fL (7.4-10.4); MONOCYTES 3.9 % (2-11); PLATELET COUNT 624 10x3/uL (130-400); RBC 3.46 10x6/uL (4.20-6.10)
[2017-09-03 06:30] LABS: WBC 15.6 10x3/uL (4.8-10.8)
[2017-09-03 06:33] LABS: ANION GAP 13.2 mmol/L (8-16); CALCIUM 8.2 mg/dL (8.5-10.1); CARBON DIOXIDE 29.2 mmol/L (21.0-32.0); CREATININE - SERUM 1.9 mg/dL (0.6-1.3); POTASSIUM - SERUM 3.4 mmol/L (3.5-5.1)
[2017-09-04] VITALS: BP 120/86
[2017-09-04 04:00] VITALS: BP 121/79
[2017-09-04 05:04] LABS: BASOPHILS 0.1 % (0-2); EOSINOPHILS 0.9 % (0-7); HEMATOCRIT 26.1 % (42.0-54.0); HEMOGLOBIN 8.5 g/dL (13.5-17.5); IMMATURE GRANULOCYTES 0.6 % (0-5); LYMPHOCYTES 12.3 % (15-50); MCHC 32.6 g/dL (31.0-37.0); MCV 79.8 fL (80.0-100.0); MEAN PLATELET VOLUME 8.7 fL (7.4-10.4); MONOCYTES 9.3 % (2-11); NEUTROPHILS 76.8 % (40-80); PLATELET COUNT 549 10x3/uL (130-400); RBC 3.27 10x6/uL (4.20-6.10)
[2017-09-04 05:07] LABS: WBC 10.5 10x3/uL (4.8-10.8)
[2017-09-04 05:29] LABS: ANION GAP 12.1 mmol/L (8-16); CALCIUM 8.1 mg/dL (8.5-10.1); CARBON DIOXIDE 28.2 mmol/L (21.0-32.0); CREATININE - SERUM 1.8 mg/dL (0.6-1.3); POTASSIUM - SERUM 3.3 mmol/L (3.5-5.1)
[2017-09-04 11:01] VITALS: BP 130/76
[2017-09-04 13:41] VITALS: BP 127/73
[2017-09-04 17:02] VITALS: BP 123/76
[2017-09-04 19:00] VITALS: BP 105/62
[2017-09-05 04:00] VITALS: BP 112/76
[2017-09-05 06:15] LABS: BASOPHILS 0.1 % (0-2); EOSINOPHILS 2.7 % (0-7); HEMATOCRIT 23.4 % (42.0-54.0); IMMATURE GRANULOCYTES 0.5 % (0-5); LYMPHOCYTES 14.9 % (15-50); MCH 25.5 pg (26.0-34.0); MCHC 32.1 g/dL (31.0-37.0); MCV 79.6 fL (80.0-100.0); MEAN PLATELET VOLUME 8.6 fL (7.4-10.4); MONOCYTES 9.9 % (2-11); NEUTROPHILS 71.9 % (40-80); PLATELET COUNT 552 10x3/uL (130-400); RBC 2.94 10x6/uL (4.20-6.10); RDW 15.9 % (11.5-14.5)
[2017-09-05 06:32] LABS: WBC 7.5 10x3/uL (4.8-10.8)
[2017-09-05 06:35] LABS: HEMOGLOBIN 7.5 g/dL (13.5-17.5)
[2017-09-05 06:51] LABS: ANION GAP 12.7 mmol/L (8-16); CALCIUM 7.9 mg/dL (8.5-10.1); CARBON DIOXIDE 27.7 mmol/L (21.0-32.0); CREATININE - SERUM 1.5 mg/dL (0.6-1.3); POTASSIUM - SERUM 3.4 mmol/L (3.5-5.1)
[2017-09-05 08:47] VITALS: BP 125/86
[2017-09-05 12:33] VITALS: BP 135/86
[2017-09-05 21:44] VITALS: BP 144/101
[2017-09-06 01:15] VITALS: BP 135/101
[2017-09-06 05:58] VITALS: BP 132/102
[2017-09-06 06:10] LABS: BASOPHILS 0.2 % (0-2); EOSINOPHILS 0.2 % (0-7); IMMATURE GRANULOCYTES 0.4 % (0-5); LYMPHOCYTES 10.5 % (15-50); MCH 26.8 pg (26.0-34.0); MCHC 33.5 g/dL (31.0-37.0); MEAN PLATELET VOLUME 8.6 fL (7.4-10.4); MONOCYTES 7.8 % (2-11); NEUTROPHILS 80.9 % (40-80); RDW 15.5 % (11.5-14.5)
[2017-09-06 06:11] LABS: HEMATOCRIT 34.3 % (42.0-54.0); HEMOGLOBIN 11.5 g/dL (13.5-17.5); PLATELET COUNT 710 10x3/uL (130-400); RBC 4.29 10x6/uL (4.20-6.10)
[2017-09-06 06:27] LABS: ANION GAP 14.7 mmol/L (8-16); CALCIUM 9.1 mg/dL (8.5-10.1); CARBON DIOXIDE 28.2 mmol/L (21.0-32.0); CREATININE - SERUM 1.2 mg/dL (0.6-1.3)
[2017-09-06 06:29] LABS: POTASSIUM - SERUM 2.9 mmol/L (3.5-5.1)
[2017-09-06 08:06] VITALS: BP 151/103
[2017-09-06 11:18] VITALS: BP 136/90
[2017-09-06 15:42] VITALS: BP 126/83
[2017-09-06 19:00] VITALS: BP 155/102
[2017-09-07] VITALS: BP 142/95
[2017-09-07 04:00] VITALS: BP 132/88
[2017-09-07 06:54] LABS: HEMATOCRIT 34.5 % (42.0-54.0); HEMOGLOBIN 11.3 g/dL (13.5-17.5); LYMPHOCYTES 16.2 % (15-50); MCHC 32.8 g/dL (31.0-37.0); MCV 79.5 fL (80.0-100.0); MEAN PLATELET VOLUME 8.1 fL (7.4-10.4); NEUTROPHILS 75.8 % (40-80); PLATELET COUNT 785 10x3/uL (130-400); RBC 4.34 10x6/uL (4.20-6.10); RDW 15.6 % (11.5-14.5); WBC 11.9 10x3/uL (4.8-10.8)
[2017-09-07 07:04] LABS: ANION GAP 13.4 mmol/L (8-16); CALCIUM 8.5 mg/dL (8.5-10.1); CARBON DIOXIDE 27.5 mmol/L (21.0-32.0); CREATININE - SERUM 1.3 mg/dL (0.6-1.3)
[2017-09-07 07:15] LABS: POTASSIUM - SERUM 2.9 mmol/L (3.5-5.1)
[2017-09-07 08:24] VITALS: BP 140/102
[2017-09-07 11:42] VITALS: BP 158/103
[2017-09-07 15:48] VITALS: BP 122/85
[2017-09-07 19:00] VITALS: BP 138/90
[2017-09-08 04:00] VITALS: BP 157/95
[2017-09-08 05:35] LABS: BASOPHILS 0.3 % (0-2); EOSINOPHILS 3.2 % (0-7); HEMATOCRIT 34.7 % (42.0-54.0); HEMOGLOBIN 11.4 g/dL (13.5-17.5); IMMATURE GRANULOCYTES 1.6 % (0-5); LYMPHOCYTES 24.7 % (15-50); MCH 26.4 pg (26.0-34.0); MCHC 32.9 g/dL (31.0-37.0); MCV 80.3 fL (80.0-100.0); MEAN PLATELET VOLUME 8.7 fL (7.4-10.4); MONOCYTES 10.1 % (2-11); NEUTROPHILS 60.1 % (40-80); PLATELET COUNT 729 10x3/uL (130-400); RBC 4.32 10x6/uL (4.20-6.10); RDW 15.9 % (11.5-14.5); WBC 9.3 10x3/uL (4.8-10.8)
[2017-09-08 05:53] LABS: CALCIUM 8.7 mg/dL (8.5-10.1); CARBON DIOXIDE 29.8 mmol/L (21.0-32.0); CREATININE - SERUM 1.3 mg/dL (0.6-1.3)
[2017-09-08 05:56] LABS: POTASSIUM - SERUM 2.8 mmol/L (3.5-5.1)
[2017-09-08 07:00] VITALS: BP 141/102
[2017-09-08 21:39] VITALS: BP 140/89
[2017-09-09 03:30] VITALS: BP 69/56
[2017-09-09 05:12] LABS: ANION GAP 11.4 mmol/L (8-16); CALCIUM 8.5 mg/dL (8.5-10.1); CARBON DIOXIDE 29.2 mmol/L (21.0-32.0); CREATININE - SERUM 1.3 mg/dL (0.6-1.3); POTASSIUM - SERUM 3.6 mmol/L (3.5-5.1)
[2017-09-09 05:16] LABS: BASOPHILS 0.4 % (0-2); HEMATOCRIT 34.1 % (42.0-54.0); HEMOGLOBIN 11.1 g/dL (13.5-17.5); IMMATURE GRANULOCYTES 2.2 % (0-5); LYMPHOCYTES 21.7 % (15-50); MCH 26.2 pg (26.0-34.0); MCHC 32.6 g/dL (31.0-37.0); MCV 80.6 fL (80.0-100.0); MEAN PLATELET VOLUME 8.5 fL (7.4-10.4); NEUTROPHILS 64.7 % (40-80); PLATELET COUNT 744 10x3/uL (130-400); RBC 4.23 10x6/uL (4.20-6.10); RDW 15.9 % (11.5-14.5); WBC 11.3 10x3/uL (4.8-10.8)
[2017-09-09 08:56] VITALS: BP 172/111
[2017-09-09 12:15] VITALS: BP 131/88
[2017-09-09 16:19] VITALS: BP 135/106
[2017-09-09 19:00] VITALS: BP 158/101
[2017-09-10 04:00] VITALS: BP 121/92
[2017-09-10 06:14] LABS: BASOPHILS 0.6 % (0-2); EOSINOPHILS 2.9 % (0-7); HEMATOCRIT 34.1 % (42.0-54.0); HEMOGLOBIN 10.9 g/dL (13.5-17.5); LYMPHOCYTES 28.5 % (15-50); MCH 26.1 pg (26.0-34.0); MCV 81.6 fL (80.0-100.0); MEAN PLATELET VOLUME 8.6 fL (7.4-10.4); MONOCYTES 8.8 % (2-11); NEUTROPHILS 56.2 % (40-80); PLATELET COUNT 796 10x3/uL (130-400); RBC 4.18 10x6/uL (4.20-6.10); WBC 12.5 10x3/uL (4.8-10.8)
[2017-09-10 06:25] LABS: ANION GAP 12.7 mmol/L (8-16); CALCIUM 8.6 mg/dL (8.5-10.1); CARBON DIOXIDE 29.5 mmol/L (21.0-32.0); CREATININE - SERUM 1.6 mg/dL (0.6-1.3); POTASSIUM - SERUM 3.2 mmol/L (3.5-5.1)
[2017-09-10 08:51] VITALS: BP 174/96
[2017-09-10 11:29] VITALS: BP 130/82
[2017-09-10 15:18] VITALS: BP 141/85; BP 208/103
[2017-09-10 22:25] VITALS: BP 118/87
[2017-09-11 01:27] VITALS: BP 128/81
[2017-09-11 06:28] VITALS: BP 147/89
[2017-09-11 08:12] VITALS: BP 100/81
[2017-09-11 12:15] VITALS: BP 125/88
[2017-09-11] MEDS ORDERED: MIRALAX17 GM PO (14:12)
[2017-09-11] MEDS ORDERED: DIFLUCAN100 MG PO (14:13)
[2017-09-11] MEDS ORDERED: AMOXICILLIN500 M1 PO (14:13)
[2017-09-11 16:42] VITALS: BP 121/94
[2017-09-16 09:09] LABS: CALCULI - CA OXALATE MONOHYDR 95 % (()); CALCULI - COLOR Brown (()); CALCULI - COMMENT Note: (()); CALCULI - SIZE 4x4x3 mm (()); CALCULI - WEIGHT 52.1 mg (())
== END 2017-09-11 17:27 | disposition home health service (06) | DRG 660 ==
LOC: D.ER 19:43 → D.M2 21:04
PROVIDERS: Family Medicine; Internal Medicine Nephrology; Radiology Diagnostic Radiology; Student in an Organized Health Care Education/Training Program
PROC: 0T778DZ Dilation of Left Ureter with Intraluminal Device, Via Natural or Artificial Opening Endoscopic (ICD-10-PCS; principal; 2017-09-02 10:30)
PROC: 0TC18ZZ Extirpation of Matter from Left Kidney, Via Natural or Artificial Opening Endoscopic (ICD-10-PCS; 2017-09-04)
PROC: 0T778DZ Dilation of Left Ureter with Intraluminal Device, Via Natural or Artificial Opening Endoscopic (ICD-10-PCS; 2017-09-04)
DX: N13.6 Pyonephrosis (principal); F17.203 Nicotine dependence unspecified, with withdrawal; K56.7 Ileus, unspecified; N17.9 Acute kidney failure, unspecified; K59.00 Constipation, unspecified; K21.9 Gastro-esophageal reflux disease without esophagitis; J44.9 Chronic obstructive pulmonary disease, unspecified; F25.9 Schizoaffective disorder, unspecified; B95.2 Enterococcus as the cause of diseases classified elsewhere; B95.7 Other staphylococcus as the cause of diseases classified elsewhere; N18.3 Chronic kidney disease, stage 3 (moderate); D50.9 Iron deficiency anemia, unspecified; Z85.51 Personal history of malignant neoplasm of bladder; Z86.73 Personal history of transient ischemic attack (TIA), and cerebral infarction without residual deficits

== ENCOUNTER 2017-09-19 14:00 | Inpatient (IN) | payer MEDICARE ==
[~2017-09-19] VITALS: Ht 190.5 cm; Wt 68.0 kg
--- NOTE | ~2017-09-19 | OP ---
PATIENT NAME: ISIS YOU MEDICAL RECORD: [id number] :61 LOCATION:[facility]- ADMISSION DATE:09/20/17 SURGEON: ARLENE CORMIER MD DATE OF OPERATION: 09/20/2017 PREOPERATIVE DIAGNOSIS: Polyp at the appendiceal orifice, which was a tubulovillous adenoma with low-grade atypia. POSTOPERATIVE DIAGNOSES: Polyp at the appendiceal orifice, which was a tubulovillous adenoma with low-grade atypia. PROCEDURE: Laparoscopic cecectomy. SURGEON: Arlene Cormier MD WOOD BOX MAKER: None. BLOOD LOSS: Minimal. ANESTHESIA: General. COMPLICATIONS: None. The risks, possible complications and alternatives to procedure were explained to the patient. He elects to proceed. OPERATIVE COURSE: The patient was conveyed to the operating room electively on 09/20/2017. General anesthesia was induced by the anesthesia staff. The abdomen was sterilely prepped and draped. A small skin armen was accomplished in the left upper quadrant. Through the skin incision, a Veress needle was inserted. CO2 insufflation was begun. Once a sufficient pneumoperitoneum had been achieved, a 5-mm trocar was inserted through this incision in the left upper quadrant. Under direct internal vision, utilizing television camera, a 12-mm trocar was inserted in the suprapubic area and another 5-mm trocar was inserted in the left side of the abdomen. During insertion of the Veress needle and all trocars, there appeared to have been no injury to the bowels, any intraperitoneal or retroperitoneal structures. The urostomy was easily identified. There were some adhesions in the left lower quadrant, which were taken down with the EnSeal device. There were some adhesions in the right upper quadrant, which were taken down with the EnSeal device as well. During the entire operation, the urostomy was undamaged. I rolled the right colon medially. I took down the right white line of Toldt. I mobilized the appendix bluntly. I took down the mesoappendix with the EnSeal device. I then stapled across the cecum with firings of the Endo-VALERIY 60 with blue loads. The appendix and cecum were then placed within a bag retrieval device and wire withdrawn through the 12-mm trocar. I opened up the appendix and cecum on the back table and it did appear to contain a polyp at the appendiceal orifice. The 12-mm trocar was replaced and the abdomen reinsufflated. I irrigated and aspirated near the cecal stump. There was no bleeding even at low pressure of 8. The Wagner-Nate suture closure device and 0 Vicryl suture were used to close the fascia at the 12-mm trocar site. The skin on all the operative sites was closed with interrupted intracuticular 3-0 Vicryls. Benzoin and Steri-Strips were applied. OPERATIVE REPORT [id number] ISIS YOU The patient was then extubated and conveyed to post-anesthesia care unit where he was in stable condition. He will be dismissed home on Dilaudid for pain. TRANSINT:[id number] Voice Confirmation ID: [id number] DOCUMENT ID: [id number] ARLENE CORMIER MD CC: PLACIDO LIND, ANSELMO SLATER PARCHMAN, ANNA J MD and [id number] DICTATION DATE: 09/20/17 1524 [employer] ARCHITECT: 09/20/17 1735 DIS IN 09/20/17 [id number] [place] [address]
[~2017-09-19 14:00] MED LIST changes: +DIFLUCAN100 MG PO; +MIRALAX17 GM PO; +TRIFLUOPERAZINE10 MG PO
[2017-09-20 10:02] VITALS: BP 147/95; Ht 190.5 cm; Wt 68.0 kg
[2017-09-20 10:50] LABS: BASOPHILS 0.4 % (0-2); HEMATOCRIT 39.1 % (42.0-54.0); IMMATURE GRANULOCYTES 0.5 % (0-5); LYMPHOCYTES 20.6 % (15-50); MCH 26.5 pg (26.0-34.0); MCHC 33.2 g/dL (31.0-37.0); MCV 79.6 fL (80.0-100.0); MEAN PLATELET VOLUME 8.6 fL (7.4-10.4); MONOCYTES 6.9 % (2-11); NEUTROPHILS 70.6 % (40-80); RBC 4.91 10x6/uL (4.20-6.10); RDW 16.7 % (11.5-14.5)
[2017-09-20 11:07] LABS: ANION GAP 16.5 mmol/L (8-16); CALCIUM 9.6 mg/dL (8.5-10.1); CARBON DIOXIDE 25.7 mmol/L (21.0-32.0); CREATININE - SERUM 1.9 mg/dL (0.6-1.3); PLATELET COUNT 562 10x3/uL (130-400); POTASSIUM - SERUM 4.2 mmol/L (3.5-5.1)
[2017-09-20 11:10] LABS: INR 1.16 (0.85-1.17); PROTIME 14.3 SECONDS (11.6-15.0)
== END 2017-09-20 20:00 | disposition hospice, home (50) | DRG 331 ==
LOC: D.SDCHOLD 09-20 08:42
PROVIDERS: Anesthesiology; Surgery
PROC: 0DBH4ZZ Excision of Cecum, Percutaneous Endoscopic Approach (ICD-10-PCS; principal; 2017-09-20 11:00)
DX: D12.0 Benign neoplasm of cecum (principal); K21.9 Gastro-esophageal reflux disease without esophagitis; J44.9 Chronic obstructive pulmonary disease, unspecified; F25.9 Schizoaffective disorder, unspecified; N18.9 Chronic kidney disease, unspecified; Z72.0 Tobacco use; Z86.73 Personal history of transient ischemic attack (TIA), and cerebral infarction without residual deficits

== ENCOUNTER 2017-09-25 15:20 | Inpatient (IN) | payer MEDICARE ==
[~2017-09-25] VITALS: Ht 190.5 cm; Wt 63.5 kg
--- NOTE | ~2017-09-25 | HEMODYNAMI ---
PATIENT:ISIS YOU MEDICAL RECORD: [id number] : 61 LOCATION:[facility] ADMISSION DATE: 09/26/17 Generatedon:09/27/201714:00 Patient name: ISIS YOU Patient #: [id number] SSN: : 1965 Date of study: 09/27/2017 Page: Of Hemodynamic Procedure Report Patient Data Patient Demographics Procedure consent was obtained First Name: ISIS Gender: Male Last Name: KENYATTA : 1965 Middle Initial: D Age: 52 year(s) Patient #: [id number] Race: Unknown Additional ID: [id number] Contact details Address: [address] [place] [address] [address] State: [place] City: [place] Zip code: [address] Admission Admission Data Admission Date: 09/26/2017 Admission Time: 15:06 Room #: [id number] Procedure Procedure Types Cath Procedure Peripheral Cath Diagnostic Procedure Nephro Nephrostomy Tubes Procedure Description Procedure Date Procedure Date: 09/27/2017 Procedure Start Time: 13:22 Procedure Staff Name Function Mir Barboza MD Performing Physician Jim Reyna RT Monitor Samira Milton RT Scrub Mary Sherwood RN Nurse Arnulfo Pérez Nurse Procedure Data Cath Procedure Fluoroscopy Diagnostic fluoroscopy Total fluoroscopy Time: 0 time: 0 min min Diagnostic fluoroscopy Total fluoroscopy dose: 27 dose: 27 mGy mGy Contrast Material Contrast Material Type Amount (ml) Isovue 300 27 Procedure Medications Medication Administration Route Dosage Heparin Flush Bag 1 bags (1000units/500ml NS) Lidocaine 1% added to field 2 Versed I.V. 2 mg Fentanyl I.V. 50 mcg unlisted medication Fentanyl I.V. 50 mcg Hydralizine I.V. mg Versed I.V. 1 mg Hemodynamics Rest Heart Rate: 77 (bpm) Snapshots Pre Cath Intra NCS Post Cath Vital Signs Time Heart Resp SPO2 etCO2 NIBP (mmHg) Rhythm Pain Status Sedation Rate (ipm) (%) (mmHg) Level (bpm) 13:07:13 76 6 96 34 181/112(169) NSR 0 (11) , No 10(A) pain 13:11:37 77 10 96 32.4 179/115(149) NSR 0 (11) , No 10(A) pain 13:16:04 78 10 94 33.2 185/112(156) NSR 0 (11) , No 10(A) pain 13:20:32 86 17 100 17.3 179/121(141) NSR 0 (11) , No 10(A) pain 13:24:54 78 19 99 22.6 176/112(154) NSR 0 (11) , No 8(A) pain 13:29:16 79 13 99 34 172/115(146) NSR 0 (11) , No 8(A) pain 13:33:36 82 14 98 34 162/112(140) NSR 0 (11) , No 8(A) pain 13:37:56 82 15 95 33.2 169/106(132) NSR 0 (11) , No 8(A) pain 13:42:10 83 14 96 33.2 154/112(139) NSR 2 (11) , 8(A) Uncomfortable 13:46:26 95 12 99 31.7 149/109(130) NSR 1 (11) , Very 8(A) mild 13:51:25 86 16 99 30.2 Measuring NSR 1 (11) , Very 8(A) mild 13:51:30 86 15 98 29.4 153/103(125) NSR 1 (11) , Very 8(A) mild 13:55:39 86 14 30.2 144/98(124) NSR 1 (11) , Very 8(A) mild 13:59:49 84 15 30.2 144/97(121) NSR 1 (11) , Very 8(A) mild Medications Time Medication Route Dose Verified Delivered Reason Notes Effectiveness by by 12:56:25 Heparin Flush 1 Bag bags (1000units/500ml NS) 12:56:38 Lidocaine 1% added 2 to field 13:22:46 Versed I.V. 2 mg Mir Arredondo for sedation Mostly Tamra mantilla @ 13:27:52 13:23:01 Fentanyl I.V. 50 Mir Arredondo for sedation Mostly isabell mantilla @ 13:27:48 13:23:39 cefepime 1gm Mir Arredondo Per protocol Tamra Pérez MD 13:43:25 Fentanyl I.V. 50 Mir Arredondo for sedation Mostly isabell mantilla @ 13:51:51 13:43:31 Hydralizine I.V. mg Mir Arredondo for 10 mg Tamra Pérez hypertension given 13:45:49 Versed I.V. 1 mg Mir Arredondo for sedation Mostly Tamra mantilla @ 13:51:45 Procedure Log Time Note 12:55:09 Jim Maribell RT (R) (CV) sent for patient. Start room use. 12:55:24 Time tracking: Regular hours 12:55:30 Plan of Care:Hemodynamics will remain stable., Cardiac rhythm will remain stable., Comfort level will be maintained., Respiratory function will remain adequate., Patient/ family verbilizes understanding of procedure., Procedure tolerated without complication., Recovers from procedure without complications.. 12:55:53 Patient received from Med/Surg to IR Alert and oriented. Tansferred to table in Prone position. 12:55:54 Correct patient and procedure confirmed by team. 12:55:56 Signed procedure consent form obtained from patient. 12:55:56 ECG and BP/O2 sat monitors applied to patient. 12:55:58 Full Disclosure recording started 12:55:58 - 12:56:02 H&P Date Dictated: 09/27/2017 Within 30 days and on chart.. 12:56:03 Pre-procedure instructions explained to patient. 12:56:03 Pre-op teaching completed and patient verbalized understanding. 12:56:05 Family in waiting room. 12:56:07 Patient NPO since Midnight. 12:56:13 Use device set IR Diagnostic 12:56:14 Bag Decanter (2002S) opened to sterile field. 12:56:16 Sterile Angiographic Pack opened to sterile field. 12:56:25 Heparin Flush Bag (1000units/500ml NS) 1 bags was administered by ; ; 12:56:38 Lidocaine 1% 2 added to field was administered by ; ; 12:56:55 Is the patient allergic to Iodine/contrast media? No. 12:56:56 Is patient on blood thinner?No 12:56:59 Patient diabetic? No. 12:57:00 - 12:57:01 ----Pre-sedation anethsthesia assessment.---- 12:57:03 Previous problem with sedation/anesthesia? No ? 12:57:10 Snore? Yes 12:57:12 Sleep apnea? No 12:57:15 Deviated septum? No 12:57:16 Opens mouth fully? Yes 12:57:17 Sticks out tongue? Yes 12:57:19 Airway obstruction? No ? 12:57:24 Dentures? yes out 12:57:30 Patient pain scale 0/10 no pain. 12:57:39 IV patent on arrival in left forearm with 0.9% NaCl at [facility]. 12:57:46 Lumbar area was prepped with chlora-prep and draped in sterile fashion 12:57:49 Sharps counted by scrub and verified by R.N. 12:57:50 Alarms reviewed by R. N. 13:06:02 Vital chart was started 13:07:48 Baseline sample Acquired. 13:19:14 Physician arrived 13:19:15 --------ALL STOP TIME OUT------ 13:19:16 Final Timeout: patient, procedure, and site verified with staff and physician. All members of the team are in agreement. 13:19:21 Lumbar site verified by team. 13:19:26 Sedation plan: IV Moderate Sedation Medication:Versed, Fentanyl 13:20:04 Procedure started. 13:22:25 Local anesthetic to LT Lumbar area with Lidocaine 1% by Mir Barboza MD.INITIAL ACCESS ONLY 13::46 Versed 2 mg I.V. was administered by Arnulfo Pérez; for sedation; 13:22:53 STOPCOCK 3-Way Large Bore ([id number]) opened to sterile field. 13:22:54 KIT, INTRODUCER ACCUSTICK II W/C ([id number]) opened to sterile field. 13:22:54 STOPCOCK 3-Way Large Bore ([id number]) opened to sterile field. 13:22:55 CHIBA 20 X 15 needle opened to sterile field. 13:22:55 BAG, DRAINAGE EMPTY 600ML W/ABEBE (WST103) opened to sterile field. 13:22:56 BAG, DRAINAGE EMPTY 600ML W/ABEBE (MAT980) opened to sterile field. 13:22:56 SUTURE ETHILON 2-0 BLK MONO FS opened to sterile field. 13:22:56 SUTURE ETHILON 2-0 BLK MONO FS opened to sterile field. 13:23:01 Fentanyl 50 mcg I.V. was administered by Arnulfo Pérez; for sedation; 13:23:39 cefepime 1gm was administered by Arnulfo Pérez; Per protocol; 13:24:20 CHIBA 20 X 15 needle opened to sterile field. 13:24:21 Abscession 10 FR drainage catheter ([id number]) opened to sterile field. 13:24:21 Abscession 10 FR drainage catheter ([id number]) opened to sterile field. 13:27:48 Effectiveness of Fentanyl delivered @ 13:23:01 is: Mostly sleeping 13:27:52 Effectiveness of Versed delivered @ 13:22:46 is: Mostly sleeping 13:36:02 DILATOR, VESSEL 10/20 opened to sterile field. 13:43:25 Fentanyl 50 mcg I.V. was administered by Arnulfo Pérez; for sedation; 13:43:31 Hydralizine mg I.V. was administered by Arnulfo Pérez; for hypertension; 10 mg given 13:45:49 Versed 1 mg I.V. was administered by Arnulfo Pérez; for sedation; 13:51:45 Effectiveness of Versed delivered @ 13:45:49 is: Mostly sleeping 13:51:51 Effectiveness of Fentanyl delivered @ 13:43:25 is: Mostly sleeping 13:54:14 Procedure ended.(Physican Out) 13:55:13 Contrast amount:Isovue 300 27ml. 13:55:22 Fluoroscopy time 00.00 minutes. 13:55:26 Fluoroscopy dose: 27 mGy 13:55:26 Flurop Dose total: 27 13:55:28 Sharps counted by scrub and verified by R.N. 13:57:32 Post-op/insertion site Right Lumbar area dressed using a 4 x 4 and Tegaderm. 13:57:35 Post-op/insertion site Left Femoral artery dressed using a 4 x 4 and Tegaderm. 13:57:43 Post Lumbar area:stable 13:57:47 Procedure and supply charges have been captured, reviewed, submitted an d are correct. 14:00:11 Report given to Med/Surg. 14:00:14 Patient transfered to Med/Surg with Bed. 14:00:43 Vital chart was stopped Device Usage Item Name Manufacture Quantity Catalog Hospital Part Current Minima l Lot# / Number Charge Number Stock Stock Serial# Code Bag Decanter Microtek 1 [id number] [id number] 5 () [employer] Sterile Cardinal 1 [id number] 191533 5 Angiographic Health Pack [facility] 2 [id number] [id number] 6793 [id number] [address] [id number] 3-Way Large [id number] Bore ([id number]) KIT, [place] 1 [id number] 038227 002809 [id number] 5 [id number] INTRODUCER Scientific ACCUSTICK II W/C ([id number]) CHIBA 20 X [employer] 2 C10002 212703 569059 5 [id number] 15 needle [id number] BAG, [facility] 2 [id number] 539172 748305 036669 5 DRAINAGE EMPTY 600ML W/ABEBE (JVV413) SUTURE Ethicon 2 664H 934083 757539 5 ETHILON 2-0 BLK MONO FS Abscession Angiodynamics 2 [id number] 484867 428578 987604 5 10 FR drainage catheter ([id number]) DILATOR, [employer] 1 C10829 750963 43836 157316 5 VESSEL 05/24 Signature Audit [place] Stage Time Signature Unsigned Intra-Procedure 09/27/2017 Jim 2:00:40 PM Shuffield RT (R) (CV) Signatures Monitor : Jim Signature : [place] RT Date : Time : [id number] [place] [address]
[2017-09-25 16:36] LABS: BASOPHILS 0.2 % (0-2); HEMATOCRIT 36.6 % (42.0-54.0); HEMOGLOBIN 12.3 g/dL (13.5-17.5); IMMATURE GRANULOCYTES 0.4 % (0-5); LYMPHOCYTES 18.5 % (15-50); MCH 26.5 pg (26.0-34.0); MCHC 33.6 g/dL (31.0-37.0); MCV 78.7 fL (80.0-100.0); MEAN PLATELET VOLUME 8.7 fL (7.4-10.4); MONOCYTES 7.9 % (2-11); RBC 4.65 10x6/uL (4.20-6.10); RDW 16.6 % (11.5-14.5)
[2017-09-25 16:41] LABS: PLATELET COUNT 421 10x3/uL (130-400)
[2017-09-25 18:15] LABS: ALBUMIN 2.9 g/dL (3.4-5.0); ANION GAP 17.3 mmol/L (8-16); BILIRUBIN - TOTAL 0.22 mg/dL (0.2-1.3); CALCIUM 9.3 mg/dL (8.5-10.1); CARBON DIOXIDE 23.6 mmol/L (21.0-32.0); POTASSIUM - SERUM 3.9 mmol/L (3.5-5.1); PROTEIN - SERUM 8.5 g/dL (6.4-8.2)
[2017-09-25 23:33] VITALS: BP 127/82
[2017-09-25 23:46] VITALS: BP 127/85; BMI 17.5
[2017-09-26 04:00] VITALS: BP 125/88
[2017-09-26 05:05] LABS: ANION GAP 14.3 mmol/L (8-16); CARBON DIOXIDE 26.2 mmol/L (21.0-32.0); CREATININE - SERUM 3.3 mg/dL (0.6-1.3); MAGNESIUM - SERUM 1.6 mg/dL (1.8-2.4)
[2017-09-26 05:11] LABS: POTASSIUM - SERUM 4.5 mmol/L (3.5-5.1)
[2017-09-26 09:30] VITALS: BP 119/83
[2017-09-26 10:41] VITALS: BMI 17.4
[2017-09-26 12:40] VITALS: BP 133/88
[2017-09-26 15:30] VITALS: BP 112/79
[2017-09-26 15:41] LABS: APPEARANCE HAZY (CLEAR); COLOR RED (YELLOW); GLUCOSE NEGATIVE (NEGATIVE); KETONE NEGATIVE (NEGATIVE); NITRITE NEGATIVE (NEGATIVE); PROTEIN 1+ mg/dL (NEGATIVE); UROBILINOGEN NORMAL (NORMAL)
[2017-09-26 15:42] LABS: BILIRUBIN NEGATIVE (NEGATIVE)
[2017-09-26 15:43] LABS: AMORPHOUS SEDIMENT <1+ /lpf (NONE SEEN); BACTERIA MANY /hpf (NONE SEEN); RED CELLS - URINE >50 /hpf (0-5); WHITE CELLS - URINE 0-5 /hpf (0-5)
[2017-09-26 16:46] VITALS: Ht 190.5 cm; Wt 63.5 kg
[2017-09-26 20:00] VITALS: BP 137/93
[2017-09-27] VITALS (13 sets, daily range): BP systolic 90–160; BP diastolic 40–110
[2017-09-27 04:08] LABS: BASOPHILS 0.2 % (0-2); HEMATOCRIT 33.4 % (42.0-54.0); HEMOGLOBIN 10.9 g/dL (13.5-17.5); IMMATURE GRANULOCYTES 0.2 % (0-5); LYMPHOCYTES 13.2 % (15-50); MCH 26.3 pg (26.0-34.0); MCHC 32.6 g/dL (31.0-37.0); MONOCYTES 9.4 % (2-11); RBC 4.14 10x6/uL (4.20-6.10); RDW 16.8 % (11.5-14.5); WBC 8.5 10x3/uL (4.8-10.8)
[2017-09-27 04:09] LABS: MCV 80.7 fL (80.0-100.0); PLATELET COUNT 310 10x3/uL (130-400)
[2017-09-27 04:23] LABS: ANION GAP 11.5 mmol/L (8-16); CALCIUM 8.8 mg/dL (8.5-10.1); CARBON DIOXIDE 24.5 mmol/L (21.0-32.0); CREATININE - SERUM 2.8 mg/dL (0.6-1.3); MAGNESIUM - SERUM 1.4 mg/dL (1.8-2.4)
[2017-09-27 11:19] LABS: INR 1.07 (0.85-1.17); PROTIME 13.5 SECONDS (11.6-15.0)
[2017-09-27 14:32] LABS: APPEARANCE CLOUDY (CLEAR); COLOR RED (YELLOW)
[2017-09-27 14:33] LABS: AMORPHOUS SEDIMENT <1+ /lpf (NONE SEEN); BACTERIA MANY /hpf (NONE SEEN); BILIRUBIN NEGATIVE (NEGATIVE); GLUCOSE NEGATIVE (NEGATIVE); KETONE NEGATIVE (NEGATIVE); MUCUS <1+ /lpf (NONE SEEN); NITRITE NEGATIVE (NEGATIVE); PROTEIN 2+ mg/dL (NEGATIVE); RED CELLS - URINE >50 /hpf (0-5); UROBILINOGEN NORMAL (NORMAL); WHITE CELLS - URINE >50 /hpf (0-5); YEAST >1+ WITH HYPHAE /hpf (NONE SEEN)
[2017-09-28 04:00] VITALS: BP 121/88
[2017-09-28 09:19] VITALS: BP 120/80
[2017-09-28 11:19] LABS: ANION GAP 11.8 mmol/L (8-16); CALCIUM 8.8 mg/dL (8.5-10.1); CARBON DIOXIDE 24.5 mmol/L (21.0-32.0); CREATININE - SERUM 2.1 mg/dL (0.6-1.3)
[2017-09-28 11:20] LABS: POTASSIUM - SERUM 3.3 mmol/L (3.5-5.1)
[2017-09-28 12:45] VITALS: BP 117/79
[2017-09-28 14:45] VITALS: BP 114/84
[2017-09-28 21:18] VITALS: BP 110/72
[2017-09-29] VITALS: BP 112/70
[2017-09-29 04:00] VITALS: BP 159/72
[2017-09-29 08:33] VITALS: BP 140/97
[2017-09-29 12:36] VITALS: BP 146/91
[2017-09-29 13:22] LABS: MAGNESIUM - SERUM 1.2 mg/dL (1.8-2.4); POTASSIUM - SERUM 3.9 mmol/L (3.5-5.1)
[2017-09-29 17:01] VITALS: BP 121/79
[2017-09-29 21:21] VITALS: BP 140/96
[2017-09-30 01:15] VITALS: BP 104/72
[2017-09-30 04:38] VITALS: BP 134/64
[2017-09-30 08:02] VITALS: BP 135/91
[2017-09-30 08:48] LABS: CARBON DIOXIDE 24.9 mmol/L (21.0-32.0); CREATININE - SERUM 1.6 mg/dL (0.6-1.3); POTASSIUM - SERUM 3.9 mmol/L (3.5-5.1)
[2017-09-30 11:23] VITALS: BP 115/82
[2017-09-30 16:06] VITALS: BP 134/86
[2017-09-30 21:14] VITALS: BP 146/92
[2017-10-01 01:38] VITALS: BP 110/65
[2017-10-01 05:55] VITALS: BP 124/84
[2017-10-01 09:18] VITALS: BP 146/92
== END 2017-10-01 11:00 | disposition home health service (06) | DRG 683 ==
LOC: D.ER 15:20 → D.MS 21:49 → OBSVTIME 21:49 → D.MS 21:49
PROVIDERS: Emergency Medicine; Internal Medicine Nephrology; Physician Assistant; Radiology Diagnostic Radiology; Surgery; Urology
DX: N17.9 Acute kidney failure, unspecified (principal); F17.203 Nicotine dependence unspecified, with withdrawal; N39.0 Urinary tract infection, site not specified; Z68.1 Body mass index [BMI] 19.9 or less, adult; E86.0 Dehydration; R10.9 Unspecified abdominal pain; F15.10 Other stimulant abuse, uncomplicated; F12.10 Cannabis abuse, uncomplicated; F25.0 Schizoaffective disorder, bipolar type; R63.0 Anorexia; N13.9 Obstructive and reflux uropathy, unspecified; I12.9 Hypertensive chronic kidney disease with stage 1 through stage 4 chronic kidney disease, or unspecified chronic kidney disease; N18.2 Chronic kidney disease, stage 2 (mild); E87.6 Hypokalemia

== ENCOUNTER 2017-10-07 17:42 | Emergency (ER) | payer MEDICARE ==
[2017-09-26 16:46] VITALS: BMI 17.4
[2017-10-07 19:00] LABS: ALBUMIN 3.2 g/dL (3.4-5.0); ANION GAP 14.9 mmol/L (8-16); BILIRUBIN - TOTAL 0.18 mg/dL (0.2-1.3); CALCIUM 9.6 mg/dL (8.5-10.1); CARBON DIOXIDE 26.5 mmol/L (21.0-32.0); CREATININE - SERUM 1.7 mg/dL (0.6-1.3); POTASSIUM - SERUM 3.4 mmol/L (3.5-5.1); PROTEIN - SERUM 8.9 g/dL (6.4-8.2)
[2017-10-07 19:16] LABS: BASOPHILS 0.2 % (0-2); EOSINOPHILS 1.1 % (0-7); HEMATOCRIT 38.6 % (42.0-54.0); HEMOGLOBIN 12.7 g/dL (13.5-17.5); IMMATURE GRANULOCYTES 0.5 % (0-5); LYMPHOCYTES 15.6 % (15-50); MCH 26.6 pg (26.0-34.0); MCHC 32.9 g/dL (31.0-37.0); MCV 80.9 fL (80.0-100.0); MEAN PLATELET VOLUME 8.5 fL (7.4-10.4); MONOCYTES 5.4 % (2-11); NEUTROPHILS 77.2 % (40-80); RBC 4.77 10x6/uL (4.20-6.10); RDW 17.5 % (11.5-14.5); WBC 13.8 10x3/uL (4.8-10.8)
[2017-10-07 19:20] LABS: AMYLASE - SERUM 129 U/L (25-115); LIPASE 106 U/L (73-393)
[2017-10-07 19:21] LABS: PLATELET COUNT 471 10x3/uL (130-400)
[2017-10-07 20:51] LABS: APPEARANCE CLEAR (CLEAR); BACTERIA MODERATE /hpf (NONE SEEN); BILIRUBIN NEGATIVE (NEGATIVE); COLOR YELLOW (YELLOW); GLUCOSE NEGATIVE (NEGATIVE); KETONE NEGATIVE (NEGATIVE); NITRITE NEGATIVE (NEGATIVE); PROTEIN TRACE mg/dL (NEGATIVE); RED CELLS - URINE 0-5 /hpf (0-5); UROBILINOGEN NORMAL (NORMAL); WHITE CELLS - URINE 25-50 /hpf (0-5)
== END 2017-10-07 23:15 | disposition home or self-care (01) ==
LOC: D.ER 17:42
PROVIDERS: Emergency Medicine; Family Medicine
DX: R10.13 Epigastric pain (principal); N39.0 Urinary tract infection, site not specified; F17.200 Nicotine dependence, unspecified, uncomplicated

== ENCOUNTER 2017-10-09 09:11 | Emergency (ER) | payer MEDICARE ==
[2017-09-26 16:46] VITALS: BMI 17.4
[2017-10-09 10:03] LABS: BASOPHILS 0.2 % (0-2); EOSINOPHILS 0.6 % (0-7); HEMATOCRIT 38.1 % (42.0-54.0); HEMOGLOBIN 12.8 g/dL (13.5-17.5); IMMATURE GRANULOCYTES 0.3 % (0-5); LYMPHOCYTES 12.5 % (15-50); MCH 26.8 pg (26.0-34.0); MCHC 33.6 g/dL (31.0-37.0); MCV 79.9 fL (80.0-100.0); MEAN PLATELET VOLUME 8.3 fL (7.4-10.4); MONOCYTES 4.9 % (2-11); NEUTROPHILS 81.5 % (40-80); PLATELET COUNT 463 10x3/uL (130-400); RBC 4.77 10x6/uL (4.20-6.10); RDW 17.5 % (11.5-14.5); WBC 12.5 10x3/uL (4.8-10.8)
[2017-10-09 10:15] LABS: APPEARANCE HAZY (CLEAR); BILIRUBIN NEGATIVE (NEGATIVE); COLOR YELLOW (YELLOW); GLUCOSE NEGATIVE (NEGATIVE); KETONE NEGATIVE (NEGATIVE); NITRITE NEGATIVE (NEGATIVE); PROTEIN 2+ mg/dL (NEGATIVE); UROBILINOGEN NORMAL (NORMAL)
[2017-10-09 10:16] LABS: BACTERIA MODERATE /hpf (NONE SEEN); EPITHELIAL CELLS 0-5 /hpf (0-5); HYALINE CAST RARE /lpf (NONE SEEN); MUCUS <1+ /lpf (NONE SEEN)
[2017-10-09 10:22] LABS: ALBUMIN 2.9 g/dL (3.4-5.0); ANION GAP 16.9 mmol/L (8-16); BILIRUBIN - TOTAL 0.26 mg/dL (0.2-1.3); CALCIUM 9.4 mg/dL (8.5-10.1); CARBON DIOXIDE 24.9 mmol/L (21.0-32.0); CREATININE - SERUM 1.4 mg/dL (0.6-1.3); POTASSIUM - SERUM 3.8 mmol/L (3.5-5.1); PROTEIN - SERUM 8.3 g/dL (6.4-8.2)
== END 2017-10-09 14:29 | disposition home or self-care (01) ==
LOC: D.ER 09:11
PROVIDERS: Emergency Medicine
DX: N39.0 Urinary tract infection, site not specified (principal); K29.00 Acute gastritis without bleeding; C79.11 Secondary malignant neoplasm of bladder; K21.9 Gastro-esophageal reflux disease without esophagitis; F17.200 Nicotine dependence, unspecified, uncomplicated